=== PATIENT | male | born 1945 | race Caucasian/White ===

== ENCOUNTER 2023-10-22 18:07 | Inpatient (IN) ==
--- NOTE | 2023-10-22 18:21 | DR.SOBA ---
HPI Time Seen Time Seen by Provider: 10/22/23 18:18 Complaints Chief Complaint Doctors Comments: Patient has a h/o pulmonary fibrosis,COPD and is 02 dependent on 3.5-4L 02 NC at home. Patient has an intermittent cough and was began coughinging at 11:00am at home today. His cough worsened and patient 's lips appeared to be turnimng blue so spouise called EMS. EMS palced patient on a NRB mask because he had an 02 sat of 60-70's at home. They gave him a duoneb and a solumedrol dose 125mg iv. states that 10/19/2023 patient went to pcp's office. he was given a rocephin shot,steroid shot ,and was sent home on cefdinir. Patient denies:fever, chest pain, productive cough, headache,nausea,vomiting,abdl pain,extremity pain. COVID-19 Coronavirus risk:travel/contact w/high risk person: No Has patient experienced Coronavirus symptoms: No PMH Travel Risk Coronavirus risk:travel/contact w/high risk person: No Has patient experienced Coronavirus symptoms: No ROS Review of Systems Constitutional: Diaphoresis Eyes: No Symptoms Reported ENTM: No Symptoms Reported Respiratoy: Short of Breath and Other (Rhonchi diffusely) Cardiovascular: Palpitations Gastrointestinal/Abdominal: No Symptoms Reported Genitourinary: No Symptoms Reported Neurological: No Symptoms Reported Musculoskeletal: No Symptoms Reported Integumentary: No Symptoms Reported Hematologic/Lymphatic: No Symptoms Reported Endocrine: No Symptoms Reported Psychiatric: No Symptoms Reported All Other Systems: Reviewed and Negative PE Vital Signs Vitals: Vital Signs Temperature 98.5 F Pulse Rate 91 Pulse Rate 91 Pulse Rate 93 Pulse Rate 96 Pulse Rate 92 Pulse Rate 94 Pulse Rate 95 Pulse Rate 87 Pulse Rate 85 Pulse Rate 90 Pulse Rate 84 Pulse Rate 88 Pulse Rate 85 Pulse Rate 88 Pulse Rate 92 Pulse Rate 91 Pulse Rate 91 Pulse Rate 106 Pulse Rate 95 Pulse Rate 98 Pulse Rate 102 Pulse Rate 118 Pulse Rate 122 Pulse Rate 121 Pulse Rate 123 Respiratory Rate 33 Respiratory Rate 35 Respiratory Rate 38 Respiratory Rate 31 Respiratory Rate 35 Respiratory Rate 38 Respiratory Rate 46 Respiratory Rate 48 Respiratory Rate 40 Respiratory Rate 48 Blood Pressure 139/83 Blood Pressure 138/93 Blood Pressure 145/107 Blood Pressure 145/88 Blood Pressure 135/81 Blood Pressure 135/81 Blood Pressure 131/83 Blood Pressure 135/82 Blood Pressure 130/86 Blood Pressure 128/88 Blood Pressure 202/107 Blood Pressure 202/107 O2 Sat by Pulse Oximetry 82 O2 Sat by Pulse Oximetry 86 O2 Sat by Pulse Oximetry 85 O2 Sat by Pulse Oximetry 87 O2 Sat by Pulse Oximetry 91 O2 Sat by Pulse Oximetry 94 O2 Sat by Pulse Oximetry 95 O2 Sat by Pulse Oximetry 97 O2 Sat by Pulse Oximetry 95 O2 Sat by Pulse Oximetry 97 O2 Sat by Pulse Oximetry 96 O2 Sat by Pulse Oximetry 98 O2 Sat by Pulse Oximetry 95 O2 Sat by Pulse Oximetry 97 O2 Sat by Pulse Oximetry 97 O2 Sat by Pulse Oximetry 98 O2 Sat by Pulse Oximetry 98 O2 Sat by Pulse Oximetry 100 O2 Sat by Pulse Oximetry 98 O2 Sat by Pulse Oximetry 98 O2 Sat by Pulse Oximetry 93 O2 Sat by Pulse Oximetry 77 General Limitations: No Limitations General Appearance: Alert and In Distress Head Head Exam: Normal Inspection Eyes Eye exam: Normal Appearance ENT ENT Exam: Normal Exam Neck Neck Exam: Normal Inspection Chest Chest Inspection: Normal Inspection Respiratory Respiratory Exam: Normal Lung Sounds Bilat Respiratory Exam: Bilateral: Clear to Auscultation Cardiovascular Cardiovascular Exam: Regular Rate and Normal Rhythm Abdominal Exam Abdominal Exam: Normal Inspection, Normal Bowel Sounds and Soft Extremities Extremities Exam: Normal Inspection Back Back Exam: Normal Inspection Neurologic Neurological Exam: Alert and Oriented X3 Psychiatric Psychiatric Exam: Normal Affect and Normal Mood Skin Skin Exam: Warm, Dry, Intact and Normal Color MDM Differential Diagnosis Differential Diagnosis: CHF, COPD, Mycardial Infarction and Pneumonia Differential Diagnosis Comment:: Electrolyte disorder COURSE Treatment Treatment: Patient was brought to a monitored room in the ER by the chief revenue officer. IV access was established and an ABG was done. pH is 7.3, pO2 is 38, O2 sat is 71, FiO2 is 100% patient was placed on BiPAP after the ABG was done. Patient was given magnesium 1 g IV push in the ED when his pressure was 202/107, and his heart rate was 121, and he was using accessory abdl muslces.He subsequently had improvement in his breathing on the bipap. Discussed case with Dr Hinkle.He states that he would like to admit him to [facility]. 22:00 Patient expressed wish to treat arrhythmias with meds/use bipap as needed. Patient does not want intubation.Patient requested to be taken off Bipap in the ED and was placed on a venturi mask.Dr Hinkle was notified by the Nursing Staff. He would like an ABG in the am.Patient's CXR did not reveal an acute process.Mariaelena has a pos covid-19 test, wbc 16.7,Troponin 609.4/EKG with twvae inversions in lead III. ROR Labs Reviewed Laboratory Results Reviewed?: Yes 10/22/23 18:30 10/22/23 18:50 Laboratory: WBC 16.7 X10^3/uL (3.6-10.0) H 10/22/23 18:30 RBC 6.60 X10^6/uL (4.7-6.0) H 10/22/23 18:30 Hgb 20.5 g/dL (13.5-18.0) H* 10/22/23 18:30 Hct 64.0 % (42.0-54.0) H* 10/22/23 18:30 MCV 97.0 fL (80.0-100.0) 10/22/23 18:30 MCH 31.1 pg (27.0-34.0) 10/22/23 18:30 MCHC 32.0 g/dL (33.0-35.0) L 10/22/23 18:30 RDW 16.6 % (11.6-16.5) H 10/22/23 18:30 Plt Count 137 X10^3/uL (150.0-450.0) L 10/22/23 18:30 Plt Count Comment Decreased (ADEQUATE) 10/22/23 18:30 MPV 8.9 fL (7.4-11.0) 10/22/23 18:30 Neut % (Auto) 78.6 % (42.0-75.0) H 10/22/23 18:30 Lymph % (Auto) 9.0 % (21.0-51.0) L 10/22/23 18:30 Metcalfe % (Auto) 12.1 % (0.0-13.0) 10/22/23 18:30 Eos % (Auto) 0.1 % (0.9-2.9) L 10/22/23 18:30 Baso % (Auto) 0.2 % (0.2-1.0) 10/22/23 18:30 Neut # (Auto) 13.1 x10^3/uL (2.2-4.8) H 10/22/23 18:30 Lymph # (Auto) 1.5 X10^3/uL (1.3-2.9) 10/22/23 18:30 Metcalfe # (Auto) 2.0 x10^3/uL (0.3-0.8) H 10/22/23 18:30 Eos # (Auto) 0.0 x10^3/uL (0.0-0.2) 10/22/23 18:30 Baso # (Auto) 0.0 X10^3/uL (0.0-0.1) 10/22/23 18:30 Absolute Nucleated RBC 1.4 /100WBC 10/22/23 18:30 Total Counted 100 10/22/23 18:30 Neutrophils % (Manual) 80 % (39-76) H 10/22/23 18:30 Band Neutrophils % 1 % (0-10) 10/22/23 18:30 Lymphocytes % (Manual) 8 % (13-43) L 10/22/23 18:30 Monocytes % (Manual) 11 % (4-9) H 10/22/23 18:30 Giant Platelets Few 10/22/23 18:30 Plt Morphology Comment Abnormal (NORMAL) 10/22/23 18:30 RBC Morphology Abnormal (NORMAL) 10/22/23 18:30 Anisocytosis Slight A 10/22/23 18:30 PT 16.4 SECONDS (11.8-14.3) 10/22/23 18:50 INR Target Range - 10/22/23 18:50 INR 1.35 (0.8-1.3) H 10/22/23 18:50 APTT 35.6 SECONDS (22.9-36.5) 10/22/23 18:50 PTT Comment - 10/22/23 18:50 Sample Site Lrad 10/22/23 18:18 ABG pH 7.390 (7.35-7.45) 10/22/23 18:18 ABG pCO2 30.0 mmHg (35.0-45.0) L 10/22/23 18:18 ABG pO2 38.0 mmHg (80.0-100.0) L* 10/22/23 18:18 ABG HCO3 18.2 mmol/L (22-26) L 10/22/23 18:18 ABG O2 Saturation 71.0 % (90-100) L* 10/22/23 18:18 ABG Base Excess -5.7 mmol/L (-2.0-2.0) L 10/22/23 18:18 Ganesh Test Pos 10/22/23 18:18 A-a Gradient 638.0 mmHg 10/22/23 18:18 FiO2 100.0 10/22/23 18:18 Blood Gas Comments Pt makeda well elj 10/22/23 18:18 Sodium 139 mmol/L (136-145) 10/22/23 18:50 Corrected Sodium 140 mmol/L (136-145) 10/22/23 18:50 Potassium 4.7 mmol/L (3.5-5.1) 10/22/23 18:50 Chloride 102 mmol/L (98-107) 10/22/23 18:50 Carbon Dioxide 26.2 mmol/L (21-32) 10/22/23 18:50 BUN 36 mg/dL (7-18) H 10/22/23 18:50 Creatinine 1.66 mg/dL (0.70-1.30) H 10/22/23 18:50 Est GFR (MDRD) Af Amer 52 (>60) L 10/22/23 18:50 Est GFR (MDRD) Non-Af 43 (>60) L 10/22/23 18:50 Glucose 124 mg/dL (65-99) H 10/22/23 18:50 Lactic Acid 3.5 mmol/L (0.4-2.0) H 10/22/23 18:50 Calcium 8.7 mg/dL (8.5-10.1) 10/22/23 18:50 Corrected Calcium 9.6 mg/dL (8.5-10.1) 10/22/23 18:50 Total Bilirubin 0.80 mg/dL (0.2-1.0) 10/22/23 18:50 AST 59 Units/L (15-37) H 10/22/23 18:50 ALT 45 Units/L (12-78) 10/22/23 18:50 Alkaline Phosphatase 108 Units/L (46-116) 10/22/23 18:50 Creatine Kinase 58 Units/L (39-308) 10/22/23 18:50 Troponin I High Sens 609.4 ng/L (4.0-60.0) H* 10/22/23 18:50 C-Reactive Protein 20.50 mg/L (0-3.0) H 10/22/23 18:50 B-Natriuretic Peptide 289 pg/mL (0-79) H 10/22/23 18:50 Total Protein 7.7 g/dL (6.4-8.2) 10/22/23 18:50 Albumin 2.9 g/dL (3.4-5.0) L 10/22/23 18:50 Globulin 4.8 g/dL (2.5-4.5) H 10/22/23 18:50 Albumin/Globulin Ratio 0.6 Ratio (1.1-2.1) L 10/22/23 18:50 SARS-CoV-2 (PCR) Positive (NEGATIVE) A 10/22/23 20:47 Influenza Type A (PCR) Negative (NEGATIVE) 10/22/23 20:47 Influenza Type B (PCR) Negative (NEGATIVE) 10/22/23 20:47 RSV (PCR) Negative (NEGATIVE) 10/22/23 20:47 EKG Compared to prior EKG Dated: 10/22/23 Rate: 115 [place]: Normal Rhythm: ST Block: [address]: Ischemia (lead III) Opioid Opioid Risk Tool Age (Kingsley box if 16-45): No History of Preadolescent Sexual Abuse: No Total: 0 Total Score Risk Category: Low Risk Copyright: [facility] predicting aberrant behaviors Discharge Plan Diagnosis Discharge Problem: Acute hypoxemic respiratory failure due to COVID-19, Non-ST elevation [place] (NSTEMI), DNR (do not resuscitate), PRIMO (acute kidney injury) Discharge Plan Patient Disposition: 09 ADMITTED INPATIENT Condition: Stable Prescriptions: No Action benzonatate 200 mg capsule 200 mg PO DAILY simvastatin 40 mg tablet 40 mg PO QPM pantoprazole 40 mg tablet,delayed release (DR/EC) 40 mg PO BID metoprolol tartrate 50 mg tablet 50 mg PO BID docusate sodium 100 mg capsule 100 mg PO BID budesonide 0.5 mg/2 mL suspension for nebulization 0.5 mg BID furosemide 20 mg tablet 20 mg PO BID PRN (Reason: swelling) Hematinic Plus Vit/Minerals 106 mg iron- 1 mg tablet 1 tab PO QDAY Hemocyte-Plus 106 mg iron- 1 mg capsule 1 cap PO QDAY Health Concerns: Post Hospitalization: new medications and changes needed to prevent readmission or further decline. Pt educated and given instructions on all concerns. Plan of Treatment: Continue with present treatment and follow up plan. Pt is to keep follow up appointment as instructed and take medications as ordered. Orders to Discharge Patient Discharge Orders: Transfer (Routine); Ordered 10/22/23 Ordered By: Anali Olivera Follow ups/Referrals Follow ups/Referrals: Ryland Hinkle [Primary Care Provider] - 3 days Instructions Stand Alone Forms: Post Hospital Follow Up Care
[2023-10-22 18:22] VITALS: BMI 25.6
[2023-10-22 18:23] LABS: ABG ALLEN TEST POS; ABG BASE EXCESS -5.7 mmol/L (-2.0-2.0); ABG HCO3 18.2 mmol/L (22-26)
[2023-10-22] MEDS ORDERED: MAGNESIUM SULFATE 1 GRAM/100 mL PREMIX 1 G/100 ML BAG IV SCH (18:23)
[2023-10-22] MEDS ORDERED: MAGNESIUM SULFATE 1 GRAM/100 mL PREMIX 1 G/100 ML BAG IV ONE ×3 (18:24→18:26)
[2023-10-22] MEDS: MAGNESIUM SULFATE 1 GRAM/100 mL PREMIX 1 G/100 ML BAG IV SCH ×2 (18:25→18:27)
--- NOTE | 2023-10-22 18:47 | EKG ---
Test Reason : sob Blood Pressure : */* mmHG Vent. Rate : 115 BPM Atrial Rate : 115 BPM P-R Int : 226 ms QRS Dur : 78 ms QT Int : 288 ms P-R-T Axes : -2 115 2 degrees QTc Int : 398 ms Sinus tachycardia with 1st degree AV block with premature supraventricular complexes Right axis deviation T wave abnormality, consider inferior ischemia Abnormal ECG No previous ECGs available Confirmed by Jonel Blanca MD ([id number]) on 10/23/2023 7:35:01 AM Referred By: Confirmed By: Jonel Blanca MD
[2023-10-22 19:08] LABS: MEAN PLATELET VOLUME 8.9 fL (7.4-11.0)
[2023-10-22 19:13] LABS: BASOPHILS % (AUTO) 0.2 % (0.2-1.0); EOSINOPHILS % (AUTO) 0.1 % (0.9-2.9); LYMPHOCYTES # (AUTO) 1.5 X10^3/uL (1.3-2.9); MEAN CORPUSCULAR HEMOGLOBIN 31.1 pg (27.0-34.0); MONOCYTES % (AUTO) 12.1 % (0.0-13.0); NEUTROPHILS # (AUTO) 13.1 x10^3/uL (2.2-4.8); NEUTROPHILS % (AUTO) 78.6 % (42.0-75.0); PLATELET COUNT 137 X10^3/uL (150.0-450.0); RED CELL DISTRIBUTION WIDTH 16.6 % (11.6-16.5); WHITE BLOOD COUNT 16.7 X10^3/uL (3.6-10.0)
[2023-10-22 19:14] LABS: INR 1.35 (0.8-1.3)
--- NOTE | 2023-10-22 19:20 | RAD ---
EXAM:CHEST, 1 VIEWHISTORY:SOB, COPD;COMPARISON:CT chest from February 01, 2023TECHNIQUE:Chest radiographic imaging, AP portable projection, 1 imageFINDINGS:Mild cardiomegaly.Status post median sternotomy/CABG.No focal airspace disease.No pleural effusion.No pneumothorax.No acute osseous abnormality.IMPRESSION:No imaging findings of acute cardiopulmonary disease.THIS IS AN ELECTRONICALLY VERIFIED FINAL REPORT10/22/2023 7:16 PM - Electronically signed by Alexandre Langley MD
[2023-10-22 19:35] LABS: HEMOGLOBIN 20.5 g/dL (13.5-18.0)
[2023-10-22 19:36] LABS: BAND NEUTROPHILS % 1 % (0-10)
[2023-10-22 19:37] LABS: ANISOCYTOSIS SLIGHT; GIANT PLATELET FEW; PLATELET MORPHOLOGY COMMENT ABNORMAL (NORMAL)
[2023-10-22 19:39] LABS: ALBUMIN 2.9 g/dL (3.4-5.0); CALCIUM 8.7 mg/dL (8.5-10.1); CARBON DIOXIDE 26.2 mmol/L (21-32); COR CA(FOR HYPOALB) 9.6 mg/dL (8.5-10.1); CREATININE 1.66 mg/dL (0.70-1.30); POTASSIUM 4.7 mmol/L (3.5-5.1); TOTAL PROTEIN 7.7 g/dL (6.4-8.2)
--- NOTE | 2023-10-23 04:56 | EKG ---
Test Reason : CP Blood Pressure : */* mmHG Vent. Rate : 76 BPM Atrial Rate : 76 BPM P-R Int : 248 ms QRS Dur : 92 ms QT Int : 398 ms P-R-T Axes : 49 77 110 degrees QTc Int : 447 ms Sinus rhythm with 1st degree AV block Otherwise normal ECG When compared with ECG of 22-OCT-2023 18:34, (Unconfirmed) premature supraventricular complexes are no longer present Vent. rate has decreased BY 39 BPM QRS axis shifted left T wave inversion no longer evident in Inferior leads T wave inversion now evident in Anterolateral leads Confirmed by Jonel Blanca MD ([id number]) on 10/23/2023 7:34:16 AM Referred By: Confirmed By: Jonel Blanca MD
[2023-10-23 05:09] LABS: ABG BASE EXCESS 0.3 mmol/L (-2.0-2.0); ABG HCO3 22.9 mmol/L (22-26)
[2023-10-23 05:10] LABS: ABG ALLEN TEST POS
[2023-10-23 05:35] LABS: BASOPHILS % (AUTO) 0.2 % (0.2-1.0); LYMPHOCYTES # (AUTO) 0.7 X10^3/uL (1.3-2.9); LYMPHOCYTES % (AUTO) 7.7 % (21.0-51.0); MEAN CORPUSCULAR HEMOGLOBIN 31.2 pg (27.0-34.0); MEAN CORPUSCULAR HGB CONC 32.6 g/dL (33.0-35.0); MEAN CORPUSCULAR VOLUME 95.6 fL (80.0-100.0); MEAN PLATELET VOLUME 8.7 fL (7.4-11.0); MONOCYTES # (AUTO) 0.6 x10^3/uL (0.3-0.8); MONOCYTES % (AUTO) 6.2 % (0.0-13.0); NEUTROPHILS # (AUTO) 7.9 x10^3/uL (2.2-4.8); NEUTROPHILS % (AUTO) 85.9 % (42.0-75.0); PLATELET COUNT 99 X10^3/uL (150.0-450.0); RED BLOOD COUNT 6.57 X10^6/uL (4.7-6.0); RED CELL DISTRIBUTION WIDTH 16.3 % (11.6-16.5); WHITE BLOOD COUNT 9.2 X10^3/uL (3.6-10.0)
[2023-10-23 05:47] LABS: ALBUMIN 2.6 g/dL (3.4-5.0); CALCIUM 8.7 mg/dL (8.5-10.1); CARBON DIOXIDE 27.4 mmol/L (21-32); COR CA(FOR HYPOALB) 9.8 mg/dL (8.5-10.1); CREATININE 1.49 mg/dL (0.70-1.30)
[2023-10-23 05:50] LABS: HEMATOCRIT 62.8 % (42.0-54.0); HEMOGLOBIN 20.5 g/dL (13.5-18.0)
[2023-10-23] MEDS: LOPRESSOR TAB 50 MG PO SCH ×2 (08:44→20:10)
[2023-10-23] MEDS: COLACE CAP 100 MG PO SCH ×2 (08:44→20:09)
[2023-10-23] MEDS: PROTONIX TAB 40 MG PO SCH ×2 (08:45→20:10)
[2023-10-23] MEDS ORDERED: PATIENT'S HOME MEDICATION (Mv-Mins No.73-Iron Fum-Folic [Hemocyte-Plus] 106 mg iron- 1 mg PO SCH (09:00)
[2023-10-23] MEDS ORDERED: HEMOCYTE-PLUS PO SCH (09:00)
[2023-10-23] MEDS: TESSALON PERLES PO SCH (09:03)
[2023-10-23] MEDS: PULMICORT NEB TX 0.5 MG NEB SCH ×2 (09:12→20:26)
--- NOTE | 2023-10-23 11:29 | DR.CONSULT ---
CONSULT Consultation for Day of: Date: 10/23/23 Chief Complaint Chief Complaint: sob Allergies Allergies Allergy/AdvReac Type Severity Reaction Status Date / Time No Known Drug Allergies Allergy Unknown Verified 02/11/21 09:36 History of Present Illness History of Present Illness: 78 yo male-pt of [facility]- Cabg 2003- last stress 10/30: no ischemia ef 56%- last echo 10/31 50%- also has AAA s/p stents/copd/pulm fibrosis/stroke- was doing ok except last week - got sob/covid running in family- got bad yesterday with initial abg had o2 30- ekg did not have acute st changes-denied cp- feeling better now but still sob- no evolutionary changes on ekg but trops [id number] Past Medical History Past Medical History: COPD, Coronary Artery Disease and Hypertension Past Surgical History Surgical History: Angioplasty/Stents Family History Family Medical History: Coronary Artery Disease, Heart Failure and Hypertension Social History Type of Tobacco Use: None Does any household member use tobacco: No Alcohol Use: None Drug Use: None Medications Home Medications: No Known Drug Allergies Allergy (Unknown, Verified 02/11/21 09:36) CONTINUE taking the following medications B bsmfyat-B-laj-Fe-FA 106 mg iron-1 mg tablet (Hematinic Plus Vit/Minerals) 1 tab PO QDAY 10/22/23 [History] benzonatate 200 mg capsule 200 mg PO DAILY 10/22/23 [History] budesonide 0.5 mg/2 mL suspension for nebulization 0.5 mg BID 10/22/23 [History] docusate sodium 100 mg capsule 100 mg PO BID 10/22/23 [History] furosemide 20 mg tablet 20 mg PO BID PRN swelling 10/22/23 [History] metoprolol tartrate 50 mg tablet 50 mg PO BID 10/22/23 [History] multivit-minerals no.73-iron fumarate 106 mg-folic acid 1 mg capsule (Hemocyte- Plus) 1 cap PO QDAY 10/22/23 [History] pantoprazole 40 mg tablet,delayed release 40 mg PO BID 10/22/23 [History] simvastatin 40 mg tablet 40 mg PO QPM 10/22/23 [History] Physical Exam Vital Signs: Vital Signs Temperature 97.8 F Temperature 97.4 F Pulse Rate 58 Pulse Rate 57 Pulse Rate 56 Pulse Rate 53 Pulse Rate 67 Pulse Rate 71 Pulse Rate 69 Pulse Rate 71 Pulse Rate 63 Pulse Rate 68 Pulse Rate 67 Pulse Rate 67 Pulse Rate 70 Pulse Rate 68 Pulse Rate 77 Respiratory Rate 16 Respiratory Rate 25 Respiratory Rate 22 Respiratory Rate 21 Respiratory Rate 21 Respiratory Rate 24 Respiratory Rate 20 Respiratory Rate 17 Respiratory Rate 17 Respiratory Rate 17 Respiratory Rate 17 Respiratory Rate 22 Respiratory Rate 19 Respiratory Rate 24 Blood Pressure 126/78 Blood Pressure 135/87 Blood Pressure 132/73 Blood Pressure 159/94 Blood Pressure 167/88 Blood Pressure 147/85 Blood Pressure 129/80 Blood Pressure 153/77 Blood Pressure 144/93 Blood Pressure 164/90 Blood Pressure 125/83 Blood Pressure 124/76 O2 Sat by Pulse Oximetry 87 O2 Sat by Pulse Oximetry 91 O2 Sat by Pulse Oximetry 92 O2 Sat by Pulse Oximetry 91 O2 Sat by Pulse Oximetry 92 O2 Sat by Pulse Oximetry 88 O2 Sat by Pulse Oximetry 90 O2 Sat by Pulse Oximetry 89 O2 Sat by Pulse Oximetry 91 O2 Sat by Pulse Oximetry 91 O2 Sat by Pulse Oximetry 91 O2 Sat by Pulse Oximetry 90 O2 Sat by Pulse Oximetry 88 O2 Sat by Pulse Oximetry 89 O2 Sat by Pulse Oximetry 88 sob , wearing multiple masks no jvd, lungs : some rhonchi/dry crackles cor rrr afua ext; minimal edema labs: hct 64 cxr: no PNA, cr 1.49 wbc 16.7 plt 99 Plan (1) Acute hypoxemic respiratory failure due to COVID-19: Status: Acute (2) Non-ST elevation [place] (NSTEMI): Status: Acute Narrative Support Text: suspect relted to hypoxia/covid- will see if EF has changes significantly with echo- it has been almost 2 years- could consider stress when over this event (3) PRIMO (acute kidney injury): Status: Acute (4) Low platelet count: Status: Acute (5) High hematocrit: Status: Acute Narrative Support Text: ? need for giving blood to drop hct< 55 (6) COPD (chronic obstructive pulmonary disease): Status: Acute (7) Pulmonary fibrosis: Status: Acute
--- NOTE | 2023-10-23 16:32 | DR.H&P ---
H&P - History & Physical for Day of: H&P Date: 10/22/23 - Chief Complaint Chief Complaint: COUGH, SHORTNESS OF BREATH, DECREASED OXYGEN SATURATIONS - History of Present Illness History of Present Illness: IS A 78 YEAR OLD PATIENT OF OURS. HE HAS A HISTORY OF PULMONARY FIBROSIS, COPD, HYPERLIPIDEMIA, GERD. HE PRESENTED TO THE HOSPITAL WITH COMPLAINTS OF COUGH, SHORTNESS OF BREATH, AND DECREASED OXYGEN SATURATIONS. HE IS OXYGEN DEPENDENT ON 3.5-4 LPM. PATIENTS SPOUSE REPORTS THAT HE BECAME CYANOTIC, SO SHE CALLED EMS. EMS REPORTS THAT HIS OXYGEN SATURATIONS WERE 60-70% WHEN THEY ARRIVED. THEY PLACED HIM ON A NON-REBREATHER AND GAVE HIM A DUONEB TX AND SOLU-MEDROL 125MG. SPOUSE REPORTS THAT PATIENT WAS GIVEN A ROCEPHIN INJECTION, STEROID INJECTION, AND AN RX FOR CEFDINIR ON 10/19/23. PATIENT DENIES FEVER, CHEST PAIN, PRODUCTIVE COUGH, HEADACHE, NAUSEA, VOMITING, ABDOMINAL PAIN, OR EXTREMITY PAIN. ON ARRIVAL TO THE ER, HIS VITALS WERE: 98.5-122-48-77%-202/107. LABS WERE OBTAINED. WBC 16.7, RBC 6.60, HGB 20.5, HCT 64.0, PLT COUNT 137, INR 1.35, D-DIMER 10.74, SODIUM 139, POTASSIUM 4.7, CHLORIDE 102, BUN 36, CREATININE 1.66, GLUCOSE 124, CALCIUM 8.7, LACTIC ACID 3.5, TOTAL BILI 0.80, AST 59, ALT 45, ALK PHOS 108, CREATINE KINASE 58, TROPONIN 609.4, CRP 20.50, BNP 289, TOTAL PROTEIN 7.7, ALBUMIN 2.9. ABG WAS OBTAINED AND REVEALED: PH 7.390, PC02 30, P02 38, HC03 18.2, HC03 18.2, 02 SAT 71, BASE EXCESS 5.7, A-A GRADIENT 638, FI02 100. COVID-19 POSITIVE. INFLUENZA AND RSV NEGATIVE. BLOOD CULTURES WERE SET UP. CHEST XRAY WAS OBTAINED AND REVEALED: No imaging findings of acute cardiopulmonary disease. EKG REVEALED SINUS TACHYCARDIA WITH 1ST DEGREE AV BLOCK WITH PREMATURE SUPRAVENTRICULAR COMPLEXES. IN THE ER, HE WAS GIVEN MAGNESIUM 1G IV X 1. HE WAS ADMITTED TO THE HOSPITAL FOR FURTHER EVALUATION AND TREATMENT OF COVID-19, BRONCHOPNEUMONIA, ACUTE HYPOXEMIC RESPIRATORY FAILURE, NON-ST ELEVATION [place], ACUTE KIDNEY INJURY. HE WAS STARTED ON PAXLOVID, SOLU-MEDROL 80MG IV Q8H, PULMICORT NEBS BID, ROBITUSSIN DM 10 ML QID, TUSSIONEX 5ML Q12H PRN, LEVAQUIN 500MG IV DAILY, TESSALON PERLES 200MG DAILY. HIS HOME MEDS OF COLACE, LASIX, METOPROLOL, PROTONIX WERE RESUMED. OTHERWISE, WE PLAN TO FOLLOW UP WITH AM LABS AND CHEST XRAY AND CONTINUE TO MONITOR. TIME SPENT ON CLINICAL ASSESSMENT, REVIEWING LABS AND IMAGING, DECISION MAKING, AND DOCUMENTATION GREATER THAN 75 MINUTES. - Past Medical History Past Medical History: COPD, Coronary Artery Disease, Dyslipidemia, GERD, Hypertension Additional Medical History: PULMONARY FIBROSIS - Past Surgical History Surgical History: Angioplasty/Stents - Family History Family Medical History: Coronary Artery Disease, Heart Failure, Hypertension - Social History Type of Tobacco Use: None Does any household member use tobacco: No Alcohol Use: None Drug Use: None - Review of Systems Constitutional: Weakness Eyes: No Symptoms Reported ENT: No Symptoms Reported Respiratory: Cough, Shortness of Breath, SOB with Excertion Cardiovascular: No Symptoms Reported Gastrointestinal: No Symptoms Reported Genitourinary: No Symptoms Reported Musculoskeletal: No Symptoms Reported Skin: No Symptoms Reported Neurological: Weakness - Physical Exam Vital Signs: Vital Signs Temperature 97.8 F Temperature 97.4 F Pulse Rate 55 Pulse Rate 53 Pulse Rate 56 Pulse Rate 58 Pulse Rate 58 Pulse Rate 60 Pulse Rate 60 Pulse Rate 55 Pulse Rate 58 Pulse Rate 55 Pulse Rate 55 Pulse Rate 58 Pulse Rate 57 Pulse Rate 56 Pulse Rate 53 Pulse Rate 67 Pulse Rate 71 Pulse Rate 69 Pulse Rate 71 Respiratory Rate 16 Respiratory Rate 18 Respiratory Rate 17 Respiratory Rate 16 Respiratory Rate 22 Respiratory Rate 26 Respiratory Rate 24 Respiratory Rate 22 Respiratory Rate 17 Respiratory Rate 17 Respiratory Rate 17 Respiratory Rate 16 Respiratory Rate 25 Respiratory Rate 22 Respiratory Rate 21 Respiratory Rate 21 Respiratory Rate 24 Respiratory Rate 20 Blood Pressure 152/74 Blood Pressure 137/72 Blood Pressure 136/77 Blood Pressure 143/80 Blood Pressure 122/75 Blood Pressure 153/84 Blood Pressure 140/83 Blood Pressure 138/78 Blood Pressure 155/76 Blood Pressure 131/77 Blood Pressure 126/78 Blood Pressure 135/87 Blood Pressure 132/73 Blood Pressure 159/94 Blood Pressure 167/88 Blood Pressure 147/85 O2 Sat by Pulse Oximetry 88 O2 Sat by Pulse Oximetry 86 O2 Sat by Pulse Oximetry 86 O2 Sat by Pulse Oximetry 86 O2 Sat by Pulse Oximetry 86 O2 Sat by Pulse Oximetry 89 O2 Sat by Pulse Oximetry 87 O2 Sat by Pulse Oximetry 87 O2 Sat by Pulse Oximetry 87 O2 Sat by Pulse Oximetry 86 O2 Sat by Pulse Oximetry 85 O2 Sat by Pulse Oximetry 87 O2 Sat by Pulse Oximetry 91 O2 Sat by Pulse Oximetry 92 O2 Sat by Pulse Oximetry 91 O2 Sat by Pulse Oximetry 92 O2 Sat by Pulse Oximetry 88 O2 Sat by Pulse Oximetry 90 O2 Sat by Pulse Oximetry 89 Oriented: Normal Eyes: Normal Ear: Normal Nose: Normal Throat: Normal Respiratory: Rhonchi Throughout Cardiovascular: Tachycardia : Normal Auscultation: Bowel Sounds: Normal Palpation: Normal Tenderness: Normal Skin: Normal Musculoskeletal: Normal Psychiatric: Normal Mood Description: Calm Affect: Normal Speech Pattern: Clear - Assessment/Plan (1) Acute hypoxemic respiratory failure due to COVID-19 Status: Acute Plan: ADMIT, SUPPLEMENTAL OXYGEN, PAXLOVID, SOLU-MEDROL 80MG IV Q8H, PULMICORT NEBS BID, ROBITUSSIN DM 10 ML QID, TUSSIONEX 5ML Q12H PRN, LEVAQUIN 500MG IV DAILY, TESSALON PERLES 200MG DAILY. HIS HOME MEDS OF COLACE, LASIX, METOPROLOL, PROTONIX WERE RESUMED. (2) Bronchopneumonia Status: Acute (3) PRIMO (acute kidney injury) Status: Acute (4) Non-ST elevation [place] (NSTEMI) Status: Acute Plan: CARDIOLOGY CONSULT (5) COPD (chronic obstructive pulmonary disease) Qualifiers: COPD type: unspecified COPD Qualified Code(s): J44.9 - Chronic obstructive pulmonary disease, unspecified Status: Chronic (6) Hyperlipidemia Qualifiers: Hyperlipidemia type: mixed hyperlipidemia Qualified Code(s): E78.2 - Mixed hyperlipidemia Status: Chronic (7) Pulmonary fibrosis Status: Chronic - Allergies Allergies/Adverse Reactions: Allergies Allergy/AdvReac Type Severity Reaction Status Date / Time No Known Drug Allergies Allergy Unknown Verified 02/11/21 09:36 - Medications Home Medications: Home Medications Medication Instructions Recorded Confirmed B ezoyrwr-N-dfl-Fe-FA 106 mg 1 tab PO QDAY 10/22/23 10/22/23 iron-1 mg tablet (Hematinic Plus Vit/Minerals) benzonatate 200 mg capsule 200 mg PO DAILY 10/22/23 10/22/23 budesonide 0.5 mg/2 mL suspension 0.5 mg BID 10/22/23 10/22/23 for nebulization docusate sodium 100 mg capsule 100 mg PO BID 10/22/23 10/22/23 furosemide 20 mg tablet 20 mg PO BID PRN swelling 10/22/23 10/22/23 metoprolol tartrate 50 mg tablet 50 mg PO BID 10/22/23 10/22/23 multivit-minerals no.73-iron 1 cap PO QDAY 10/22/23 10/22/23 fumarate 106 mg-folic acid 1 mg capsule (Hemocyte-Plus) pantoprazole 40 mg tablet,delayed 40 mg PO BID 10/22/23 10/22/23 release simvastatin 40 mg tablet 40 mg PO QPM 10/22/23 10/22/23
[2023-10-23] MEDS: SOLU-Medrol 40 MG VIAL IVP SCH ×2 (18:00→21:19)
[2023-10-23] MEDS ORDERED: ZOCOR TAB 40 MG PO SCH (21:00)
[2023-10-24] MEDS: SOLU-Medrol 40 MG VIAL IVP SCH ×3 (05:20→21:27)
[2023-10-24 05:27] LABS: BASOPHILS % (AUTO) 0.4 % (0.2-1.0); LYMPHOCYTES # (AUTO) 0.5 X10^3/uL (1.3-2.9); MONOCYTES % (AUTO) 5.1 % (0.0-13.0); NEUTROPHILS % (AUTO) 88.5 % (42.0-75.0)
[2023-10-24 05:32] LABS: ALANINE AMINOTRANSFERASE 35 Units/L (12-78); ALBUMIN 2.5 g/dL (3.4-5.0); ALKALINE PHOSPHATASE 83 Units/L (46-116); ASPARTATE AMINO TRANSFERASE 42 Units/L (15-37); BLOOD UREA NITROGEN 40 mg/dL (7-18); CALCIUM 8.9 mg/dL (8.5-10.1); CARBON DIOXIDE 24.4 mmol/L (21-32); CHLORIDE 104 mmol/L (98-107); COR CA(FOR HYPOALB) 10.1 mg/dL (8.5-10.1); COR NA(FOR HYPERGLY) 138 mmol/L (136-145); CREATININE 1.27 mg/dL (0.70-1.30); GLUCOSE 143 mg/dL (65-99); POTASSIUM 4.6 mmol/L (3.5-5.1); SODIUM 137 mmol/L (136-145); TOTAL PROTEIN 6.8 g/dL (6.4-8.2); eGFR NON BLACK RACES 58 (>60)
[2023-10-24 05:35] LABS: MEAN CORPUSCULAR HEMOGLOBIN 30.7 pg (27.0-34.0); MEAN CORPUSCULAR VOLUME 96.1 fL (80.0-100.0); MEAN PLATELET VOLUME 8.9 fL (7.4-11.0); MONOCYTES # (AUTO) 0.4 x10^3/uL (0.3-0.8); NEUTROPHILS # (AUTO) 7.6 x10^3/uL (2.2-4.8); PLATELET COUNT 102 X10^3/uL (150.0-450.0); RED BLOOD COUNT 6.54 X10^6/uL (4.7-6.0); RED CELL DISTRIBUTION WIDTH 16.2 % (11.6-16.5); WHITE BLOOD COUNT 8.5 X10^3/uL (3.6-10.0)
--- NOTE | 2023-10-24 05:57 | RAD ---
EXAM:CHEST, 1 VIEWHISTORY:SOB;COMPARISON:10/22/2023 r.br.br.br mildly enlarged. Changes of prior CABG surgery.. The lungs are clear without focal infiltrate or effusion. The bony thorax is unremarkable.IMPRESSION:Mild cardiomegalyNo active cardiopulmonary diseaseTHIS IS AN ELECTRONICALLY VERIFIED FINAL REPORT10/24/2023 5:46 AM - Electronically signed by Dylon Tubbs MD
[2023-10-24 06:21] LABS: HEMATOCRIT 62.9 % (42.0-54.0); HEMOGLOBIN 20.1 g/dL (13.5-18.0)
[2023-10-24] MEDS: PROTONIX TAB 40 MG PO SCH ×2 (08:14→21:26)
[2023-10-24] MEDS: LOPRESSOR TAB 50 MG PO SCH ×2 (08:14→21:26)
[2023-10-24] MEDS: COLACE CAP 100 MG PO SCH ×2 (08:14→21:26)
[2023-10-24] MEDS: TESSALON PERLES PO SCH (08:16)
--- NOTE | 2023-10-24 08:52 | NOTE.SOAP ---
Soap Note Note for Day of Date of Exam: 10/24/23 Subjective Data Subjective Data: sob improving, no cp Objective Data Objective Data: bp 170s-140s p 55 alert lungs mild rhochi sumi afua minimal edema last stress 10/30 ( 2 years ago) echo: ef 55% ( same as last year but pa pressures > 55 from last year) labs: hct 63 Assessment Assessment: nstemi/covid/copd/pulm fibrosis/pulm hypertension/erythrocytosis Plan Plan: add ccb to lower bp/pa/protect heart- consider phlebotomy- stress as its been 2 years when stable/outpt unless sx progress
[2023-10-24] MEDS: PULMICORT NEB TX 0.5 MG NEB SCH ×2 (09:10→20:21)
[2023-10-24] MEDS: PAXLOVID CO-PACK (EUA) PO SCH ×2 (09:30→21:26)
[2023-10-24] MEDS: NORVASC TAB 5 MG PO SCH (09:30)
--- NOTE | 2023-10-24 12:23 | PCM.PROG ---
Progress Note - Progress Note for Day of Date of Exam: 10/24/23 - Subjective Subjective: IS CURRENTLY INPATIENT STATUS FOR TRETAMENT OF ACUTE HYPOXEMIC RESPIRATORY FAILURE DUE TO COVID-19, BRONCHOPNEUMONIA, ACUTE KIDNEY INJURY, NON-STEMI. HIS HX INCLUDES: PULMONARY FIBROSIS, COPD, HYPERLIPIDEMIA, GERD. TODAY, HE IS ALERT AND ORIENTED, SITTING UP IN BED ON MORNING ROUNDS. HE CONTINUES TO COMPLAIN OF SHORTNESS OF BREATH AND A NON-PRODUCTIVE COUGH. HE ONLY REPORTS SLIGHT IMPROVEMENT IN SYMPTOMS SINCE ADMISSION. HE IS UTILIZING OXYGEN VIA THE OXYMASK THIS MORNING AT 8 LPM. HIS OXYGEN SATURATIONS HAVE BEEN 85-92% THIS MORNING AND THROUGHOUT THE NIGHT. ON EXAMINATION, HEART IS REGULAR IN RATE AND RHYHTM. BILATERAL LUNGS ARE NOTED WITH DIMINISHED LUNG SOUNDS THROUGHOUT. ABDOMEN IS ROUND, SOFT, AND NON-TENDER WITH NORMAL BOWEL SOUNDS NOTED IN ALL QUADRANTS. GOOD RANGE OF MOTION NOTED TO UPPER AND LOWER EXTREMITIES WITH NO EDEMA NOTED. HIS VITALS THIS MORNING ARE: 97.7-70-25-86%-174/117. LABS WERE OBTAINED. WBC 8.5, RBC 6.54, HGB 20.1, HCT 62.9, PLT COUNT 102, SODIUM 137, POTASSIUM 4.6, CHLORIDE 104, BUN 40, CREATININE 1.27, CALCIUM 8.9, TOTAL BILI 0.90, AST 42, ALT 35, ALK PHOS 83, CRP 39.60, BNP 379, TOTAL PROTEIN 6.8, ALBUMIN 2.5. BLOOD CULTURES ARE PENDING. A CHEST XRAY WAS OBTAINED AND REVEALED: Mild cardiomegaly. No active cardiopulmonary disease. HE IS CURRENTLY RECEIVING PAXLOVID, SOLU-MEDROL 80MG IV Q8H, PULMICORT NEBS BID, ROBITUSSIN DM 10 ML QID, TUSSIONEX 5ML Q12H PRN, LEVAQUIN 500MG IV DAILY, TESSALON PERLES 200MG DAILY. HIS HOME MEDS OF COLACE, LASIX, METOPROLOL, PROTONIX WERE RESUMED. 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 WE WILL ORDER FOR PATIENT TO HAVE THERAPEUTIC PHLEBOTOMY DUE TO ELEVATED HGB/HCT. OTHERWISE, WE WILL CONTINUE WITH CURRENT PLAN OF CARE TODAY. WE WILL FOLLOW-UP WITH AM LABS AND CHEST XRAY AND CONTINUE TO MONITOR. TIME SPENT ON CLINICAL ASSESSMENT, REVIEWING LABS AND IMAGING, DECISION MAKING, AND DOCUMENTATION GREATER THAN 45 MINUTES. - Past Medical Family Social History Past Med/Fam/Surg Hx: No changes since H&P Allergies: Allergies No Known Drug Allergies Allergy (Unknown, Verified 02/11/21 09:36) Onset Date: 02/11/2021 - Review of Systems ROS: No change since H&P - Vital Signs and I&O's Vital Signs: Vital Signs Temperature 97.8 F Temperature 98.0 F Temperature 97.7 F Pulse Rate 60 Pulse Rate 62 Pulse Rate 63 Pulse Rate 62 Pulse Rate 71 Pulse Rate 73 Pulse Rate 78 Pulse Rate 88 Pulse Rate 80 Pulse Rate 78 Pulse Rate 74 Pulse Rate 70 Pulse Rate 55 Pulse Rate 62 Pulse Rate 54 Pulse Rate 52 Pulse Rate 56 Pulse Rate 60 Respiratory Rate 23 Respiratory Rate 28 Respiratory Rate 30 Respiratory Rate 23 Respiratory Rate 29 Respiratory Rate 31 Respiratory Rate 35 Respiratory Rate 27 Respiratory Rate 25 Respiratory Rate 24 Respiratory Rate 25 Respiratory Rate 21 Respiratory Rate 23 Respiratory Rate 15 Respiratory Rate 14 Respiratory Rate 23 Respiratory Rate 20 Blood Pressure 127/67 Blood Pressure 129/75 Blood Pressure 129/75 Blood Pressure 147/79 Blood Pressure 147/79 Blood Pressure 135/75 Blood Pressure 148/77 Blood Pressure 171/102 Blood Pressure 179/117 Blood Pressure 174/117 Blood Pressure 177/136 Blood Pressure 172/83 Blood Pressure 137/87 Blood Pressure 137/87 Blood Pressure 167/80 O2 Sat by Pulse Oximetry 86 O2 Sat by Pulse Oximetry 88 O2 Sat by Pulse Oximetry 87 O2 Sat by Pulse Oximetry 87 O2 Sat by Pulse Oximetry 88 O2 Sat by Pulse Oximetry 88 O2 Sat by Pulse Oximetry 88 O2 Sat by Pulse Oximetry 81 O2 Sat by Pulse Oximetry 85 O2 Sat by Pulse Oximetry 87 O2 Sat by Pulse Oximetry 86 O2 Sat by Pulse Oximetry 86 O2 Sat by Pulse Oximetry 92 O2 Sat by Pulse Oximetry 90 O2 Sat by Pulse Oximetry 91 O2 Sat by Pulse Oximetry 91 O2 Sat by Pulse Oximetry 88 O2 Sat by Pulse Oximetry 89 Intake and Output: Intake & Output 10/22/23 10/23/23 10/24/23 10/25/23 11:59 11:59 11:59 11:59 Intake Total 110 / 110 780 / 780 Output Total 1100 / 1100 Balance 110 / 110 -320 / -320 - Physical Exam Oriented: Normal Eyes: Normal Ear: Normal Nose: Normal Throat: Normal Respiratory: Generalized, Diminished Cardiovascular: Normal : Normal Auscultation: Bowel Sounds: Normal Palpation: Normal Tenderness: Normal Skin: Normal Musculoskeletal: Normal Psychiatric: Normal Mood Description: Calm Affect: Normal Speech Pattern: Clear, Appropriate - Laboratory and Diagnostics Result Diagrams: 10/24/23 05:02 10/24/23 05:02 Labs: 10/22/23 18:34 Blood Blood Culture - Preliminary 10/22/23 18:30 Blood Blood Culture - Preliminary Laboratory WBC 8.5 X10^3/uL (3.6-10.0) 10/24/23 05:02 RBC 6.54 X10^6/uL (4.7-6.0) H 10/24/23 05:02 Hgb 20.1 g/dL (13.5-18.0) H* 10/24/23 05:02 Hct 62.9 % (42.0-54.0) H* 10/24/23 05:02 MCV 96.1 fL (80.0-100.0) 10/24/23 05:02 MCH 30.7 pg (27.0-34.0) 10/24/23 05:02 MCHC 32.0 g/dL (33.0-35.0) L 10/24/23 05:02 RDW 16.2 % (11.6-16.5) 10/24/23 05:02 Plt Count 102 X10^3/uL (150.0-450.0) L 10/24/23 05:02 Plt Count Comment Decreased (ADEQUATE) 10/22/23 18:30 MPV 8.9 fL (7.4-11.0) 10/24/23 05:02 Neut % (Auto) 88.5 % (42.0-75.0) H 10/24/23 05:02 Lymph % (Auto) 6.0 % (21.0-51.0) L 10/24/23 05:02 [place] % (Auto) 5.1 % (0.0-13.0) 10/24/23 05:02 Eos % (Auto) 0.0 % (0.9-2.9) L 10/24/23 05:02 Baso % (Auto) 0.4 % (0.2-1.0) 10/24/23 05:02 Neut # (Auto) 7.6 x10^3/uL (2.2-4.8) H 10/24/23 05:02 Lymph # (Auto) 0.5 X10^3/uL (1.3-2.9) L 10/24/23 05:02 [place] # (Auto) 0.4 x10^3/uL (0.3-0.8) 10/24/23 05:02 Eos # (Auto) 0.0 x10^3/uL (0.0-0.2) 10/24/23 05:02 Baso # (Auto) 0.0 X10^3/uL (0.0-0.1) 10/24/23 05:02 Absolute Nucleated RBC 0.6 /100WBC 10/24/23 05:02 Total Counted 100 10/22/23 18:30 Neutrophils % (Manual) 80 % (39-76) H 10/22/23 18:30 Band Neutrophils % 1 % (0-10) 10/22/23 18:30 Lymphocytes % (Manual) 8 % (13-43) L 10/22/23 18:30 Monocytes % (Manual) 11 % (4-9) H 10/22/23 18:30 Giant Platelets Few 10/22/23 18:30 Plt Morphology Comment Abnormal (NORMAL) 10/22/23 18:30 RBC Morphology Abnormal (NORMAL) 10/22/23 18:30 Anisocytosis Slight A 10/22/23 18:30 PT 16.4 SECONDS (11.8-14.3) 10/22/23 18:50 INR Target Range - 10/22/23 18:50 INR 1.35 (0.8-1.3) H 10/22/23 18:50 APTT 35.6 SECONDS (22.9-36.5) 10/22/23 18:50 PTT Comment - 10/22/23 18:50 D-Dimer 10.74 ug/ml (0.0-0.57) H 10/23/23 09:03 Sample Site Lr 10/23/23 05:00 ABG pH 7.490 (7.35-7.45) H 10/23/23 05:00 ABG pCO2 30.0 mmHg (35.0-45.0) L 10/23/23 05:00 ABG pO2 54.0 mmHg (80.0-100.0) L 10/23/23 05:00 ABG HCO3 22.9 mmol/L (22-26) 10/23/23 05:00 ABG O2 Saturation 90.0 % (90-100) 10/23/23 05:00 ABG Base Excess 0.3 mmol/L (-2.0-2.0) 10/23/23 05:00 Ganesh Test Pos 10/23/23 05:00 A-a Gradient 279.0 mmHg 10/23/23 05:00 FiO2 52.0 10/23/23 05:00 Blood Gas Comments Monika well 10/23/23 05:00 Sodium 137 mmol/L (136-145) 10/24/23 05:02 Corrected Sodium 138 mmol/L (136-145) 10/24/23 05:02 Potassium 4.6 mmol/L (3.5-5.1) 10/24/23 05:02 Chloride 104 mmol/L (98-107) 10/24/23 05:02 Carbon Dioxide 24.4 mmol/L (21-32) 10/24/23 05:02 BUN 40 mg/dL (7-18) H 10/24/23 05:02 Creatinine 1.27 mg/dL (0.70-1.30) 10/24/23 05:02 Est GFR (MDRD) Af Amer > 60 (>60) 10/24/23 05:02 Est GFR (MDRD) Non-Af 58 (>60) L 10/24/23 05:02 Glucose 143 mg/dL (65-99) H 10/24/23 05:02 Lactic Acid 1.7 mmol/L (0.4-2.0) 10/23/23 08:15 Calcium 8.9 mg/dL (8.5-10.1) 10/24/23 05:02 Corrected Calcium 10.1 mg/dL (8.5-10.1) 10/24/23 05:02 Magnesium 2.3 mg/dL (2.0-2.9) 10/23/23 04:11 Total Bilirubin 0.90 mg/dL (0.2-1.0) 10/24/23 05:02 AST 42 Units/L (15-37) H 10/24/23 05:02 ALT 35 Units/L (12-78) 10/24/23 05:02 Alkaline Phosphatase 83 Units/L (46-116) 10/24/23 05:02 Creatine Kinase 55 Units/L (39-308) 10/23/23 00:20 Troponin I High Sens 834.7 ng/L (4.0-60.0) H* 10/23/23 06:50 C-Reactive Protein 39.60 mg/L (0-3.0) H 10/24/23 05:02 B-Natriuretic Peptide 379 pg/mL (0-79) H 10/24/23 05:02 Total Protein 6.8 g/dL (6.4-8.2) 10/24/23 05:02 Albumin 2.5 g/dL (3.4-5.0) L 10/24/23 05:02 Globulin 4.3 g/dL (2.5-4.5) 10/24/23 05:02 Albumin/Globulin Ratio 0.6 Ratio (1.1-2.1) L 10/24/23 05:02 SARS-CoV-2 (PCR) Positive (NEGATIVE) A 10/22/23 20:47 Influenza Type A (PCR) Negative (NEGATIVE) 10/22/23 20:47 Influenza Type B (PCR) Negative (NEGATIVE) 10/22/23 20:47 RSV (PCR) Negative (NEGATIVE) 10/22/23 20:47 - Plan (1) Acute hypoxemic respiratory failure due to COVID-19 Status: Acute Plan: ADMIT, SUPPLEMENTAL OXYGEN, PAXLOVID, SOLU-MEDROL 80MG IV Q8H, PULMICORT NEBS BID, ROBITUSSIN DM 10 ML QID, TUSSIONEX 5ML Q12H PRN, LEVAQUIN 500MG IV DAILY, TESSALON PERLES 200MG DAILY. HIS HOME MEDS OF COLACE, LASIX, METOPROLOL, PROTONIX WERE RESUMED. (2) Bronchopneumonia Status: Acute (3) PRIMO (acute kidney injury) Status: Acute (4) Non-ST elevation AL (NSTEMI) Status: Acute Plan: CARDIOLOGY CONSULT (5) HTN (hypertension) Status: Acute Qualifiers: Hypertension type: primary hypertension Qualified Code(s): I10 - Essential (primary) hypertension (6) COPD (chronic obstructive pulmonary disease) Status: Chronic Qualifiers: COPD type: unspecified COPD Qualified Code(s): J44.9 - Chronic obstructive pulmonary disease, unspecified (7) Hyperlipidemia Status: Chronic Qualifiers: Hyperlipidemia type: mixed hyperlipidemia Qualified Code(s): E78.2 - Mixed hyperlipidemia (8) Pulmonary fibrosis Status: Chronic
[2023-10-25 05:35] LABS: BASOPHILS % (AUTO) 0.2 % (0.2-1.0); HEMOGLOBIN 18.2 g/dL (13.5-18.0); MEAN CORPUSCULAR HEMOGLOBIN 30.6 pg (27.0-34.0); MONOCYTES # (AUTO) 0.6 x10^3/uL (0.3-0.8); MONOCYTES % (AUTO) 3.9 % (0.0-13.0); RED BLOOD COUNT 5.94 X10^6/uL (4.7-6.0)
[2023-10-25] MEDS: SOLU-Medrol 40 MG VIAL IVP SCH ×3 (05:40→21:53)
[2023-10-25 05:42] LABS: ALANINE AMINOTRANSFERASE 41 Units/L (12-78); ALBUMIN 2.2 g/dL (3.4-5.0); ALKALINE PHOSPHATASE 80 Units/L (46-116); ASPARTATE AMINO TRANSFERASE 39 Units/L (15-37); BLOOD UREA NITROGEN 38 mg/dL (7-18); CALCIUM 8.4 mg/dL (8.5-10.1); CARBON DIOXIDE 27.3 mmol/L (21-32); CHLORIDE 106 mmol/L (98-107); COR CA(FOR HYPOALB) 9.8 mg/dL (8.5-10.1); COR NA(FOR HYPERGLY) 138 mmol/L (136-145); CREATININE 1.11 mg/dL (0.70-1.30); GLUCOSE 122 mg/dL (65-99); LYMPHOCYTES # (AUTO) 0.5 X10^3/uL (1.3-2.9); LYMPHOCYTES % (AUTO) 3.2 % (21.0-51.0); MEAN CORPUSCULAR HGB CONC 31.8 g/dL (33.0-35.0); MEAN CORPUSCULAR VOLUME 96.2 fL (80.0-100.0); MEAN PLATELET VOLUME 8.7 fL (7.4-11.0); NEUTROPHILS # (AUTO) 13.4 x10^3/uL (2.2-4.8); NEUTROPHILS % (AUTO) 92.7 % (42.0-75.0); PLATELET COUNT 93 X10^3/uL (150.0-450.0); POTASSIUM 4.5 mmol/L (3.5-5.1); RED CELL DISTRIBUTION WIDTH 16.1 % (11.6-16.5); SODIUM 137 mmol/L (136-145); TOTAL PROTEIN 6.1 g/dL (6.4-8.2); WHITE BLOOD COUNT 14.5 X10^3/uL (3.6-10.0); eGFR NON BLACK RACES > 60 (>60)
[2023-10-25 06:08] LABS: HEMATOCRIT 57.1 % (42.0-54.0)
[2023-10-25 06:09] LABS: BAND NEUTROPHILS % 1 % (0-10); PLATELET MORPHOLOGY COMMENT NORMAL (NORMAL)
--- NOTE | 2023-10-25 06:20 | RAD ---
EXAM:CHEST, 1 VIEWHISTORY:SOB ;COMPARISON:10/24/2023FINDINGS:The trachea is midline. The cardiac silhouette is mildly enlarged. Changes of prior CABG surgery.. The lungs are clear without focal infiltrate or effusion. The bony thorax is unremarkable.IMPRESSION:Mild cardiomegalyNo active cardiopulmonary diseaseTHIS IS AN ELECTRONICALLY VERIFIED FINAL REPORT10/25/2023 6:16 AM - Electronically signed by Dylon Tubbs MD
[2023-10-25] MEDS: PAXLOVID CO-PACK (EUA) PO SCH ×2 (08:03→21:35)
[2023-10-25] MEDS: COLACE CAP 100 MG PO SCH ×2 (08:03→21:53)
[2023-10-25] MEDS: LOPRESSOR TAB 50 MG PO SCH ×2 (08:03→21:53)
[2023-10-25] MEDS: TESSALON PERLES PO SCH (08:04)
[2023-10-25] MEDS: PROTONIX TAB 40 MG PO SCH ×2 (08:04→21:53)
[2023-10-25] MEDS: NORVASC TAB 5 MG PO SCH (08:04)
[2023-10-25] MEDS: PULMICORT NEB TX 0.5 MG NEB SCH ×2 (08:52→20:50)
--- NOTE | 2023-10-25 12:19 | PCM.PROG ---
Progress Note - Progress Note for Day of Date of Exam: 10/25/23 - Subjective Subjective: IS CURRENTLY INPATIENT STATUS FOR TRETAMENT OF ACUTE HYPOXEMIC RESPIRATORY FAILURE DUE TO COVID-19, BRONCHOPNEUMONIA, ACUTE KIDNEY INJURY, NON-STEMI. HIS HX INCLUDES: PULMONARY FIBROSIS, COPD, HYPERLIPIDEMIA, GERD. TODAY, HE IS ALERT AND ORIENTED, SITTING UP IN BED ON MORNING ROUNDS. HE CONTINUES TO COMPLAIN OF SHORTNESS OF BREATH AND A NON-PRODUCTIVE COUGH. HE ONLY REPORTS SLIGHT IMPROVEMENT IN SYMPTOMS SINCE WE SAW HIM YESTERDAY. HE IS UTILIZING OXYGEN VIA THE OXYMASK THIS MORNING AT 8 LPM. HIS OXYGEN SATURATIONS HAVE BEEN 89-93% THIS MORNING AND THROUGHOUT THE NIGHT. ON EXAMINATION, HEART IS REGULAR IN RATE AND RHYHTM. BILATERAL LUNGS ARE NOTED WITH DIMINISHED LUNG SOUNDS THROUGHOUT. ABDOMEN IS ROUND, SOFT, AND NON-TENDER WITH NORMAL BOWEL SOUNDS NOTED IN ALL QUADRANTS. GOOD RANGE OF MOTION NOTED TO UPPER AND LOWER EXTREMITIES WITH NO EDEMA NOTED. HIS VITALS THIS MORNING ARE: 97.5-54-26-93%-166/86. LABS WERE OBTAINED. WBC 14.5, RBC 5.94, HGB 18.2, HCT 57.1, PLT COUNT 93, SODIUM 137, POTASSIUM 4.5, CHLORIDE 106, BUN 38, CREATININE 1.11, GLUCOSE 122, CALCIUM 8.4, TOTAL BILI 0.80, AST 39, ALT 41, ALK PHOS 80, CRP 17.30, TOTAL PROTEIN 6.1, ALBUMIN 2.2. BLOOD CULTURES ARE PENDING. A CHEST XRAY WAS OBTAINED AND REVEALED: Mild cardiomegaly. No active cardiopulmonary disease. HE IS CURRENTLY RECEIVING PAXLOVID, SOLU-MEDROL 80MG IV Q8H, PULMICORT NEBS BID, ROBITUSSIN DM 10 ML QID, TUSSIONEX 5ML Q12H PRN, LEVAQUIN 500MG IV DAILY, TESSALON PERLES 200MG DAILY, NORVASC 56MG DAILY. HIS HOME MEDS OF COLACE, LASIX, METOPROLOL, PROTONIX WERE RESUMED. OTHERWISE, WE WILL CONTINUE WITH CURRENT PLAN OF CARE TODAY. WE WILL FOLLOW-UP WITH AM LABS AND CHEST XRAY AND CONTINUE TO MONITOR. TIME SPENT ON CLINICAL ASSESSMENT, REVIEWING LABS AND IMAGING, DECISION MAKING, AND DOCUMENTATION GREATER THAN 45 MINUTES. - Past Medical Family Social History Past Med/Fam/Surg Hx: No changes since H&P Allergies: Allergies No Known Drug Allergies Allergy (Unknown, Verified 02/11/21 09:36) Onset Date: 02/11/2021 - Review of Systems ROS: No change since H&P - Vital Signs and I&O's Vital Signs: Vital Signs Temperature 97.5 F Pulse Rate 50 Pulse Rate 54 Pulse Rate 61 Pulse Rate 54 Pulse Rate 51 Pulse Rate 54 Respiratory Rate 22 Respiratory Rate 22 Respiratory Rate 32 Respiratory Rate 26 Respiratory Rate 14 Respiratory Rate 28 Blood Pressure 145/66 Blood Pressure 135/63 Blood Pressure 142/91 Blood Pressure 166/86 Blood Pressure 137/71 Blood Pressure 167/88 O2 Sat by Pulse Oximetry 90 O2 Sat by Pulse Oximetry 93 O2 Sat by Pulse Oximetry 90 O2 Sat by Pulse Oximetry 93 O2 Sat by Pulse Oximetry 92 O2 Sat by Pulse Oximetry 92 Intake and Output: Intake & Output 10/23/23 10/24/23 10/25/23 10/26/23 11:59 11:59 11:59 11:59 Intake Total 110 / 110 780 / 780 1140 / 1140 Output Total 1100 / 1100 1550 / 1550 Balance 110 / 110 -320 / -320 -410 / -410 - Physical Exam Oriented: Normal Eyes: Normal Ear: Normal Nose: Normal Throat: Normal Respiratory: Generalized, Diminished Cardiovascular: Normal : Normal Auscultation: Bowel Sounds: Normal Tenderness: Normal Skin: Normal Musculoskeletal: Normal Psychiatric: Normal Mood Description: Calm Affect: Normal Speech Pattern: Clear, Appropriate - Laboratory and Diagnostics Result Diagrams: 10/25/23 04:42 10/25/23 04:42 Labs: 10/22/23 18:34 Blood Blood Culture - Preliminary 10/22/23 18:30 Blood Blood Culture - Preliminary Laboratory WBC 14.5 X10^3/uL (3.6-10.0) H 10/25/23 04:42 RBC 5.94 X10^6/uL (4.7-6.0) 10/25/23 04:42 Hgb 18.2 g/dL (13.5-18.0) H 10/25/23 04:42 Hct 57.1 % (42.0-54.0) H* 10/25/23 04:42 MCV 96.2 fL (80.0-100.0) 10/25/23 04:42 MCH 30.6 pg (27.0-34.0) 10/25/23 04:42 MCHC 31.8 g/dL (33.0-35.0) L 10/25/23 04:42 RDW 16.1 % (11.6-16.5) 10/25/23 04:42 Plt Count 93 X10^3/uL (150.0-450.0) L 10/25/23 04:42 Plt Count Comment Decreased (ADEQUATE) 10/25/23 04:42 MPV 8.7 fL (7.4-11.0) 10/25/23 04:42 Neut % (Auto) 92.7 % (42.0-75.0) H 10/25/23 04:42 Lymph % (Auto) 3.2 % (21.0-51.0) L 10/25/23 04:42 [place] % (Auto) 3.9 % (0.0-13.0) 10/25/23 04:42 Eos % (Auto) 0.0 % (0.9-2.9) L 10/25/23 04:42 Baso % (Auto) 0.2 % (0.2-1.0) 10/25/23 04:42 Neut # (Auto) 13.4 x10^3/uL (2.2-4.8) H 10/25/23 04:42 Lymph # (Auto) 0.5 X10^3/uL (1.3-2.9) L 10/25/23 04:42 [place] # (Auto) 0.6 x10^3/uL (0.3-0.8) 10/25/23 04:42 Eos # (Auto) 0.0 x10^3/uL (0.0-0.2) 10/25/23 04:42 Baso # (Auto) 0.0 X10^3/uL (0.0-0.1) 10/25/23 04:42 Absolute Nucleated RBC 0.2 /100WBC 10/25/23 04:42 Total Counted 100 10/25/23 04:42 Neutrophils % (Manual) 91 % (39-76) H 10/25/23 04:42 Band Neutrophils % 1 % (0-10) 10/25/23 04:42 Lymphocytes % (Manual) 6 % (13-43) L 10/25/23 04:42 Monocytes % (Manual) 2 % (4-9) L 10/25/23 04:42 Giant Platelets Few 10/22/23 18:30 Plt Morphology Comment Normal (NORMAL) 10/25/23 04:42 RBC Morphology Normal (NORMAL) 10/25/23 04:42 Anisocytosis Slight A 10/22/23 18:30 PT 16.4 SECONDS (11.8-14.3) 10/22/23 18:50 INR Target Range - 10/22/23 18:50 INR 1.35 (0.8-1.3) H 10/22/23 18:50 APTT 35.6 SECONDS (22.9-36.5) 10/22/23 18:50 PTT Comment - 10/22/23 18:50 D-Dimer 10.74 ug/ml (0.0-0.57) H 10/23/23 09:03 Sample Site Lr 10/23/23 05:00 ABG pH 7.490 (7.35-7.45) H 10/23/23 05:00 ABG pCO2 30.0 mmHg (35.0-45.0) L 10/23/23 05:00 ABG pO2 54.0 mmHg (80.0-100.0) L 10/23/23 05:00 ABG HCO3 22.9 mmol/L (22-26) 10/23/23 05:00 ABG O2 Saturation 90.0 % (90-100) 10/23/23 05:00 ABG Base Excess 0.3 mmol/L (-2.0-2.0) 10/23/23 05:00 Ganesh Test Pos 10/23/23 05:00 A-a Gradient 279.0 mmHg 10/23/23 05:00 FiO2 52.0 10/23/23 05:00 Blood Gas Comments Monika well 10/23/23 05:00 Sodium 137 mmol/L (136-145) 10/25/23 04:42 Corrected Sodium 138 mmol/L (136-145) 10/25/23 04:42 Potassium 4.5 mmol/L (3.5-5.1) 10/25/23 04:42 Chloride 106 mmol/L (98-107) 10/25/23 04:42 Carbon Dioxide 27.3 mmol/L (21-32) 10/25/23 04:42 BUN 38 mg/dL (7-18) H 10/25/23 04:42 Creatinine 1.11 mg/dL (0.70-1.30) 10/25/23 04:42 Est GFR (MDRD) Af Amer > 60 (>60) 10/25/23 04:42 Est GFR (MDRD) Non-Af > 60 (>60) 10/25/23 04:42 Glucose 122 mg/dL (65-99) H 10/25/23 04:42 Lactic Acid 1.7 mmol/L (0.4-2.0) 10/23/23 08:15 Calcium 8.4 mg/dL (8.5-10.1) L 10/25/23 04:42 Corrected Calcium 9.8 mg/dL (8.5-10.1) 10/25/23 04:42 Magnesium 2.3 mg/dL (2.0-2.9) 10/23/23 04:11 Total Bilirubin 0.80 mg/dL (0.2-1.0) 10/25/23 04:42 AST 39 Units/L (15-37) H 10/25/23 04:42 ALT 41 Units/L (12-78) 10/25/23 04:42 Alkaline Phosphatase 80 Units/L (46-116) 10/25/23 04:42 Creatine Kinase 55 Units/L (39-308) 10/23/23 00:20 Troponin I High Sens 834.7 ng/L (4.0-60.0) H* 10/23/23 06:50 C-Reactive Protein 17.30 mg/L (0-3.0) H 10/25/23 04:42 B-Natriuretic Peptide 379 pg/mL (0-79) H 10/24/23 05:02 Total Protein 6.1 g/dL (6.4-8.2) L 10/25/23 04:42 Albumin 2.2 g/dL (3.4-5.0) L 10/25/23 04:42 Globulin 3.9 g/dL (2.5-4.5) 10/25/23 04:42 Albumin/Globulin Ratio 0.6 Ratio (1.1-2.1) L 10/25/23 04:42 SARS-CoV-2 (PCR) Positive (NEGATIVE) A 10/22/23 20:47 Influenza Type A (PCR) Negative (NEGATIVE) 10/22/23 20:47 Influenza Type B (PCR) Negative (NEGATIVE) 10/22/23 20:47 RSV (PCR) Negative (NEGATIVE) 10/22/23 20:47 - Plan (1) Acute hypoxemic respiratory failure due to COVID-19 Status: Acute Plan: ADMIT, SUPPLEMENTAL OXYGEN, PAXLOVID, SOLU-MEDROL 80MG IV Q8H, PULMICORT NEBS BID, ROBITUSSIN DM 10 ML QID, TUSSIONEX 5ML Q12H PRN, LEVAQUIN 500MG IV DAILY, TESSALON PERLES 200MG DAILY. HIS HOME MEDS OF COLACE, LASIX, METOPROLOL, PROTONIX WERE RESUMED. (2) Bronchopneumonia Status: Acute (3) PRIMO (acute kidney injury) Status: Acute (4) Non-ST elevation IN (NSTEMI) Status: Acute Plan: CARDIOLOGY CONSULT (5) HTN (hypertension) Status: Acute Qualifiers: Hypertension type: primary hypertension Qualified Code(s): I10 - Essential (primary) hypertension (6) COPD (chronic obstructive pulmonary disease) Status: Chronic Qualifiers: COPD type: unspecified COPD Qualified Code(s): J44.9 - Chronic obstructive pulmonary disease, unspecified (7) Hyperlipidemia Status: Chronic Qualifiers: Hyperlipidemia type: mixed hyperlipidemia Qualified Code(s): E78.2 - Mixed hyperlipidemia (8) Pulmonary fibrosis Status: Chronic
--- NOTE | 2023-10-25 14:03 | NOTE.SOAP ---
Soap Note Note for Day of Date of Exam: 10/25/23 Subjective Data Subjective Data: continues to improve, sob better, no cp Objective Data Objective Data: had phlebotomy yesterday with hct 57 ( more today per ) bp 130 w amlodipine, hr 50-60 cardiac meds: asa/bb/ccb/statin Assessment Assessment: covid with sign hypoxia, troponin bump with this but no ekg changes and echo ef same as last year- pa pressures much higher- polycythemia being treated with phlebotomy Plan Plan: cont same
[2023-10-26 05:09] LABS: BASOPHILS % (AUTO) 0.2 % (0.2-1.0); LYMPHOCYTES # (AUTO) 0.4 X10^3/uL (1.3-2.9); LYMPHOCYTES % (AUTO) 2.5 % (21.0-51.0); MEAN CORPUSCULAR HEMOGLOBIN 30.6 pg (27.0-34.0); MEAN CORPUSCULAR VOLUME 95.7 fL (80.0-100.0); MEAN PLATELET VOLUME 8.8 fL (7.4-11.0); MONOCYTES # (AUTO) 0.7 x10^3/uL (0.3-0.8); MONOCYTES % (AUTO) 4.3 % (0.0-13.0); NEUTROPHILS # (AUTO) 14.6 x10^3/uL (2.2-4.8); PLATELET COUNT 88 X10^3/uL (150.0-450.0); RED BLOOD COUNT 5.87 X10^6/uL (4.7-6.0); RED CELL DISTRIBUTION WIDTH 15.9 % (11.6-16.5); WHITE BLOOD COUNT 15.7 X10^3/uL (3.6-10.0)
[2023-10-26 05:16] LABS: ALANINE AMINOTRANSFERASE 43 Units/L (12-78); ALBUMIN 2.2 g/dL (3.4-5.0); ALKALINE PHOSPHATASE 78 Units/L (46-116); ASPARTATE AMINO TRANSFERASE 33 Units/L (15-37); BLOOD UREA NITROGEN 30 mg/dL (7-18); CALCIUM 8.1 mg/dL (8.5-10.1); CARBON DIOXIDE 29.8 mmol/L (21-32); CHLORIDE 108 mmol/L (98-107); COR CA(FOR HYPOALB) 9.5 mg/dL (8.5-10.1); CREATININE 1.08 mg/dL (0.70-1.30); GLUCOSE 103 mg/dL (65-99); POTASSIUM 4.3 mmol/L (3.5-5.1); SODIUM 142 mmol/L (136-145); TOTAL PROTEIN 5.8 g/dL (6.4-8.2); eGFR NON BLACK RACES > 60 (>60)
--- NOTE | 2023-10-26 05:29 | RAD ---
EXAM:CHEST, 1 VIEWHISTORY:SOB;COMPARISON:10/25/2023 r.br.br.br unremarkable. Changes of prior CABG surgery. The lungs are clear without focal infiltrate or effusion. The bony thorax is unremarkable.IMPRESSION:Mild cardiomegalyNo active cardiopulmonary diseaseTHIS IS AN ELECTRONICALLY VERIFIED FINAL REPORT10/26/2023 5:25 AM - Electronically signed by Dylon Tubbs MD
[2023-10-26 05:48] LABS: HEMATOCRIT 56.2 % (42.0-54.0); PLATELET MORPHOLOGY COMMENT NORMAL (NORMAL); TEAR DROP CELLS PRESENT
[2023-10-26] MEDS: SOLU-Medrol 40 MG VIAL IVP SCH ×4 (05:54→21:25)
[2023-10-26] MEDS: PULMICORT NEB TX 0.5 MG NEB SCH ×2 (08:30→20:50)
[2023-10-26] MEDS: COLACE CAP 100 MG PO SCH ×2 (08:33→21:19)
[2023-10-26] MEDS: LOPRESSOR TAB 50 MG PO SCH ×2 (08:33→21:19)
[2023-10-26] MEDS: NORVASC TAB 5 MG PO SCH ×2 (08:33→21:19)
[2023-10-26] MEDS: TESSALON PERLES PO SCH (08:33)
[2023-10-26] MEDS: PAXLOVID CO-PACK (EUA) PO SCH ×3 (08:34→21:19)
[2023-10-26] MEDS: PROTONIX TAB 40 MG PO SCH ×2 (08:34→21:19)
--- NOTE | 2023-10-26 10:48 | PCM.PROG ---
Progress Note - Progress Note for Day of Date of Exam: 10/26/23 - Subjective Subjective: IS CURRENTLY INPATIENT STATUS FOR TRETAMENT OF ACUTE HYPOXEMIC RESPIRATORY FAILURE DUE TO COVID-19, BRONCHOPNEUMONIA, ACUTE KIDNEY INJURY, NON-STEMI. HIS HX INCLUDES: PULMONARY FIBROSIS, COPD, HYPERLIPIDEMIA, GERD. TODAY, HE IS ALERT AND ORIENTED, SITTING UP IN BED ON MORNING ROUNDS. HE REPORTS SOME IMPROVEMENT IN COUGH AND SHORTNESS OF BREATH THIS MORNING. HE REPORTS THAT SHORTNESS OF BREATH IS WORSE ON EXTERTION. HE DENIES CHEST PAIN OR OTHER SYMPTOMS. HE IS UTILIZING OXYGEN VIA NASAL CANNULA AT 3.5 LPM THIS MORNING. HIS OXYGEN SATURATIONS HAVE BEEN 87-88% MOST OF THE NIGHT AND THIS MORNING. ON EXAMINATION, HEART IS REGULAR IN RATE AND RHYHTM. BILATERAL LUNGS ARE NOTED WITH DIMINISHED LUNG SOUNDS THROUGHOUT. ABDOMEN IS ROUND, SOFT, AND NON-TENDER WITH NORMAL BOWEL SOUNDS NOTED IN ALL QUADRANTS. GOOD RANGE OF MOTION NOTED TO UPPER AND LOWER EXTREMITIES WITH NO EDEMA NOTED. HIS VITALS THIS MORNING ARE: 98.9-65-26-87%-146/74. LABS WERE OBTAINED. WBC 15.7, RBC 5.87, HGB 18.0, HCT 56.2, PLT COUNT 88, SODIUM 142, POTASSIUM 4.3, BUN 30, CREATININE 1.08, GLUCOSE 103, CALCIUM 8.1, AST 33, ALT 43, ALK PHOS 78, CRP 8.50, TOTAL PROTEIN 5.8, ALBUMIN 2.2. BLOOD CULTURES ARE PENDING. A CHEST XRAY WAS OBTAINED AND REVEALED: unremarkable. Changes of prior CABG surgery. The lungs are clear without focal infiltrate or effusion. The bony thorax is unremarkable. HE IS CURRENTLY RECEIVING PAXLOVID, SOLU-MEDROL 80MG IV Q8H, PULMICORT NEBS BID, ROBITUSSIN DM 10 ML QID, TUSSIONEX 5ML Q12H PRN, LEVAQUIN 500MG IV DAILY, TESSALON PERLES 200MG DAILY, NORVASC 5MG DAILY. HIS HOME MEDS OF COLACE, LASIX, METOPROLOL, PROTONIX WERE RESUMED. OTHERWISE, WE WILL CONTINUE WITH CURRENT PLAN OF CARE TODAY. WE WILL FOLLOW-UP WITH AM LABS AND CHEST XRAY AND CONTINUE TO MONITOR. TIME SPENT ON CLINICAL ASSESSMENT, REVIEWING LABS AND IMAGING, DECISION MAKING, AND DOCUMENTATION GREATER THAN 45 MINUTES. - Past Medical Family Social History Past Med/Fam/Surg Hx: No changes since H&P Allergies: Allergies No Known Drug Allergies Allergy (Unknown, Verified 02/11/21 09:36) Onset Date: 02/11/2021 - Review of Systems ROS: No change since H&P - Vital Signs and I&O's Vital Signs: Vital Signs Temperature 98.9 F Temperature 98.5 F Pulse Rate 67 Pulse Rate 65 Pulse Rate 52 Pulse Rate 70 Pulse Rate 78 Pulse Rate 71 Pulse Rate 56 Pulse Rate 56 Pulse Rate 49 Pulse Rate 52 Pulse Rate 51 Pulse Rate 51 Respiratory Rate 23 Respiratory Rate 26 Respiratory Rate 26 Respiratory Rate 22 Respiratory Rate 25 Respiratory Rate 15 Respiratory Rate 23 Respiratory Rate 27 Respiratory Rate 18 Respiratory Rate 23 Respiratory Rate 29 Respiratory Rate 29 Blood Pressure 173/89 Blood Pressure 146/74 Blood Pressure 164/83 Blood Pressure 164/83 Blood Pressure 166/80 Blood Pressure 166/80 Blood Pressure 138/80 Blood Pressure 138/80 Blood Pressure 156/70 Blood Pressure 156/70 O2 Sat by Pulse Oximetry 87 O2 Sat by Pulse Oximetry 87 O2 Sat by Pulse Oximetry 88 O2 Sat by Pulse Oximetry 82 O2 Sat by Pulse Oximetry 79 O2 Sat by Pulse Oximetry 85 O2 Sat by Pulse Oximetry 87 O2 Sat by Pulse Oximetry 88 O2 Sat by Pulse Oximetry 89 O2 Sat by Pulse Oximetry 88 O2 Sat by Pulse Oximetry 87 O2 Sat by Pulse Oximetry 87 Intake and Output: Intake & Output 10/23/23 10/24/23 10/25/23 10/26/23 11:59 11:59 11:59 11:59 Intake Total 110 / 110 780 / 780 1140 / 1140 760 / 760 Output Total 1100 / 1100 1550 / 1550 1400 / 1400 Balance 110 / 110 -320 / -320 -410 / -410 -640 / -640 - Physical Exam Oriented: Normal Eyes: Normal Ear: Normal Nose: Normal Throat: Normal Respiratory: Generalized, Diminished Cardiovascular: Normal : Normal Auscultation: Bowel Sounds: Normal Tenderness: Normal Skin: Normal Musculoskeletal: Normal Psychiatric: Normal Mood Description: Calm Affect: Normal Speech Pattern: Clear, Appropriate - Laboratory and Diagnostics Result Diagrams: 10/26/23 04:17 10/26/23 04:17 Labs: 10/22/23 18:34 Blood Blood Culture - Preliminary 10/22/23 18:30 Blood Blood Culture - Preliminary Laboratory WBC 15.7 X10^3/uL (3.6-10.0) H 10/26/23 04:17 RBC 5.87 X10^6/uL (4.7-6.0) 10/26/23 04:17 Hgb 18.0 g/dL (13.5-18.0) 10/26/23 04:17 Hct 56.2 % (42.0-54.0) H* 10/26/23 04:17 MCV 95.7 fL (80.0-100.0) 10/26/23 04:17 MCH 30.6 pg (27.0-34.0) 10/26/23 04:17 MCHC 32.0 g/dL (33.0-35.0) L 10/26/23 04:17 RDW 15.9 % (11.6-16.5) 10/26/23 04:17 Plt Count 88 X10^3/uL (150.0-450.0) L 10/26/23 04:17 Plt Count Comment Decreased (ADEQUATE) 10/26/23 04:17 MPV 8.8 fL (7.4-11.0) 10/26/23 04:17 Neut % (Auto) 93.0 % (42.0-75.0) H 10/26/23 04:17 Lymph % (Auto) 2.5 % (21.0-51.0) L 10/26/23 04:17 Amelia % (Auto) 4.3 % (0.0-13.0) 10/26/23 04:17 Eos % (Auto) 0.0 % (0.9-2.9) L 10/26/23 04:17 Baso % (Auto) 0.2 % (0.2-1.0) 10/26/23 04:17 Neut # (Auto) 14.6 x10^3/uL (2.2-4.8) H 10/26/23 04:17 Lymph # (Auto) 0.4 X10^3/uL (1.3-2.9) L 10/26/23 04:17 Amelia # (Auto) 0.7 x10^3/uL (0.3-0.8) 10/26/23 04:17 Eos # (Auto) 0.0 x10^3/uL (0.0-0.2) 10/26/23 04:17 Baso # (Auto) 0.0 X10^3/uL (0.0-0.1) 10/26/23 04:17 Absolute Nucleated RBC 0.1 /100WBC 10/26/23 04:17 Total Counted 100 10/26/23 04:17 Neutrophils % (Manual) 92 % (39-76) H 10/26/23 04:17 Band Neutrophils % 1 % (0-10) 10/25/23 04:42 Lymphocytes % (Manual) 4 % (13-43) L 10/26/23 04:17 Monocytes % (Manual) 4 % (4-9) 10/26/23 04:17 Giant Platelets Few 10/22/23 18:30 Plt Morphology Comment Normal (NORMAL) 10/26/23 04:17 RBC Morphology Abnormal (NORMAL) 10/26/23 04:17 Anisocytosis Slight A 10/22/23 18:30 Tear Drop Cells Present 10/26/23 04:17 PT 16.4 SECONDS (11.8-14.3) 10/22/23 18:50 INR Target Range - 10/22/23 18:50 INR 1.35 (0.8-1.3) H 10/22/23 18:50 APTT 35.6 SECONDS (22.9-36.5) 10/22/23 18:50 PTT Comment - 10/22/23 18:50 D-Dimer 10.74 ug/ml (0.0-0.57) H 10/23/23 09:03 Sample Site Lr 10/23/23 05:00 ABG pH 7.490 (7.35-7.45) H 10/23/23 05:00 ABG pCO2 30.0 mmHg (35.0-45.0) L 10/23/23 05:00 ABG pO2 54.0 mmHg (80.0-100.0) L 10/23/23 05:00 ABG HCO3 22.9 mmol/L (22-26) 10/23/23 05:00 ABG O2 Saturation 90.0 % (90-100) 10/23/23 05:00 ABG Base Excess 0.3 mmol/L (-2.0-2.0) 10/23/23 05:00 Ganesh Test Pos 10/23/23 05:00 A-a Gradient 279.0 mmHg 10/23/23 05:00 FiO2 52.0 10/23/23 05:00 Blood Gas Comments Monika well 10/23/23 05:00 Sodium 142 mmol/L (136-145) 10/26/23 04:17 Corrected Sodium TNP 10/26/23 04:17 Potassium 4.3 mmol/L (3.5-5.1) 10/26/23 04:17 Chloride 108 mmol/L (98-107) H 10/26/23 04:17 Carbon Dioxide 29.8 mmol/L (21-32) 10/26/23 04:17 BUN 30 mg/dL (7-18) H 10/26/23 04:17 Creatinine 1.08 mg/dL (0.70-1.30) 10/26/23 04:17 Est GFR (MDRD) Af Amer > 60 (>60) 10/26/23 04:17 Est GFR (MDRD) Non-Af > 60 (>60) 10/26/23 04:17 Glucose 103 mg/dL (65-99) H 10/26/23 04:17 Lactic Acid 1.7 mmol/L (0.4-2.0) 10/23/23 08:15 Calcium 8.1 mg/dL (8.5-10.1) L 10/26/23 04:17 Corrected Calcium 9.5 mg/dL (8.5-10.1) 10/26/23 04:17 Magnesium 2.3 mg/dL (2.0-2.9) 10/23/23 04:11 Total Bilirubin 0.70 mg/dL (0.2-1.0) 10/26/23 04:17 AST 33 Units/L (15-37) 10/26/23 04:17 ALT 43 Units/L (12-78) 10/26/23 04:17 Alkaline Phosphatase 78 Units/L (46-116) 10/26/23 04:17 Creatine Kinase 55 Units/L (39-308) 10/23/23 00:20 Troponin I High Sens 834.7 ng/L (4.0-60.0) H* 10/23/23 06:50 C-Reactive Protein 8.50 mg/L (0-3.0) H 10/26/23 04:17 B-Natriuretic Peptide 379 pg/mL (0-79) H 10/24/23 05:02 Total Protein 5.8 g/dL (6.4-8.2) L 10/26/23 04:17 Albumin 2.2 g/dL (3.4-5.0) L 10/26/23 04:17 Globulin 3.6 g/dL (2.5-4.5) 10/26/23 04:17 Albumin/Globulin Ratio 0.6 Ratio (1.1-2.1) L 10/26/23 04:17 SARS-CoV-2 (PCR) Positive (NEGATIVE) A 10/22/23 20:47 Influenza Type A (PCR) Negative (NEGATIVE) 10/22/23 20:47 Influenza Type B (PCR) Negative (NEGATIVE) 10/22/23 20:47 RSV (PCR) Negative (NEGATIVE) 10/22/23 20:47 - Plan (1) Acute hypoxemic respiratory failure due to COVID-19 Status: Acute Plan: ADMIT, SUPPLEMENTAL OXYGEN, PAXLOVID, SOLU-MEDROL 80MG IV Q8H, PULMICORT NEBS BID, ROBITUSSIN DM 10 ML QID, TUSSIONEX 5ML Q12H PRN, LEVAQUIN 500MG IV DAILY, TESSALON PERLES 200MG DAILY. HIS HOME MEDS OF COLACE, LASIX, METOPROLOL, PROTONIX WERE RESUMED. (2) Bronchopneumonia Status: Acute (3) PRIMO (acute kidney injury) Status: Acute (4) Non-ST elevation [place] (NSTEMI) Status: Acute Plan: CARDIOLOGY CONSULT (5) HTN (hypertension) Status: Acute Qualifiers: Hypertension type: primary hypertension Qualified Code(s): I10 - Essential (primary) hypertension (6) COPD (chronic obstructive pulmonary disease) Status: Chronic Qualifiers: COPD type: unspecified COPD Qualified Code(s): J44.9 - Chronic obstructive pulmonary disease, unspecified (7) Hyperlipidemia Status: Chronic Qualifiers: Hyperlipidemia type: mixed hyperlipidemia Qualified Code(s): E78.2 - Mixed hyperlipidemia (8) Pulmonary fibrosis Status: Chronic
--- NOTE | 2023-10-26 14:10 | NOTE.SOAP ---
Soap Note Note for Day of Date of Exam: 10/26/23 Subjective Data Subjective Data: feels better but O2 sats still 80s Objective Data Objective Data: bp 150/100 labs: hct 56 cr 1.09 bnp 379 yesterday Assessment Assessment: nstemi/severe hypoxia/covid/pulm htn/htn/polycthemia Plan Plan: resume asa/push ccb for htn/pulm htn
[2023-10-26] MEDS: ASPIRIN PO SCH (21:19)
[2023-10-27 05:19] LABS: BASOPHILS % (AUTO) 0.2 % (0.2-1.0); HEMOGLOBIN 18.3 g/dL (13.5-18.0); LYMPHOCYTES # (AUTO) 0.5 X10^3/uL (1.3-2.9); LYMPHOCYTES % (AUTO) 3.3 % (21.0-51.0); MEAN CORPUSCULAR HEMOGLOBIN 30.6 pg (27.0-34.0); MEAN CORPUSCULAR HGB CONC 31.9 g/dL (33.0-35.0); MEAN CORPUSCULAR VOLUME 95.9 fL (80.0-100.0); MEAN PLATELET VOLUME 8.9 fL (7.4-11.0); MONOCYTES # (AUTO) 0.7 x10^3/uL (0.3-0.8); MONOCYTES % (AUTO) 4.4 % (0.0-13.0); NEUTROPHILS # (AUTO) 14.2 x10^3/uL (2.2-4.8); NEUTROPHILS % (AUTO) 92.1 % (42.0-75.0); PLATELET COUNT 90 X10^3/uL (150.0-450.0); RED BLOOD COUNT 5.99 X10^6/uL (4.7-6.0); RED CELL DISTRIBUTION WIDTH 15.8 % (11.6-16.5); WHITE BLOOD COUNT 15.4 X10^3/uL (3.6-10.0)
[2023-10-27 05:37] LABS: HEMATOCRIT 57.4 % (42.0-54.0)
--- NOTE | 2023-10-27 05:38 | RAD ---
EXAM:CHEST, 1 VIEWHISTORY:SOB ;COMPARISON:10/26/2023FINDINGS:The trachea is midline. The cardiac silhouette is unremarkable. Changes of prior CABG surgery. Subtle increased interstitial markings within the left lung base consistent with subsegmental atelectasis and/or infiltrate. The right lung is clear.. The bony thorax is unremarkable.IMPRESSION:Subtle increased interstitial markings within the left lung base consistent with subsegmental atelectasis and/or infiltrate.THIS IS AN ELECTRONICALLY VERIFIED FINAL REPORT10/27/2023 5:34 AM - Electronically signed by Dylon Tubbs MD
[2023-10-27 05:39] LABS: ALANINE AMINOTRANSFERASE 44 Units/L (12-78); ALBUMIN 2.3 g/dL (3.4-5.0); ALKALINE PHOSPHATASE 84 Units/L (46-116); ASPARTATE AMINO TRANSFERASE 36 Units/L (15-37); BLOOD UREA NITROGEN 33 mg/dL (7-18); CALCIUM 8.1 mg/dL (8.5-10.1); CARBON DIOXIDE 25.9 mmol/L (21-32); CHLORIDE 106 mmol/L (98-107); COR CA(FOR HYPOALB) 9.5 mg/dL (8.5-10.1); COR NA(FOR HYPERGLY) 143 mmol/L (136-145); CREATININE 1.04 mg/dL (0.70-1.30); GLUCOSE 130 mg/dL (65-99); POTASSIUM 4.3 mmol/L (3.5-5.1); SODIUM 142 mmol/L (136-145); TOTAL PROTEIN 6.1 g/dL (6.4-8.2); eGFR NON BLACK RACES > 60 (>60)
[2023-10-27 05:46] LABS: PLATELET MORPHOLOGY COMMENT NORMAL (NORMAL)
[2023-10-27 06:00] LABS: ABG BASE EXCESS 4.6 mmol/L (-2.0-2.0); ABG HCO3 28.3 mmol/L (22-26)
[2023-10-27 06:02] LABS: ABG ALLEN TEST POS
[2023-10-27] MEDS: SOLU-Medrol 40 MG VIAL IVP SCH ×3 (06:17→21:51)
[2023-10-27] MEDS: PULMICORT NEB TX 0.5 MG NEB SCH ×2 (08:56→20:11)
--- NOTE | 2023-10-27 09:55 | NOTE.SOAP ---
Soap Note Note for Day of Date of Exam: 10/27/23 Subjective Data Subjective Data: sob cont to improve but sats still in upper 80s Objective Data Objective Data: hct still 57, bp 150/70 p60 Assessment Assessment: covid/nstemi/pulm htn/copd/pulm fibrosis/polyctthemia Plan Plan: cont same- phlebotomy to drop hct 50- will let primary cardio know about trop bump- been 2 years since stress- let him decide
[2023-10-27] MEDS: LEVAQUIN PREMIX IV 750 MG 750 MG/150 ML BAG IV SCH (10:00)
[2023-10-27] MEDS: LOPRESSOR TAB 50 MG PO SCH ×2 (10:00→20:22)
[2023-10-27] MEDS: NORVASC TAB 5 MG PO SCH ×2 (10:00→20:22)
[2023-10-27] MEDS: ASPIRIN PO SCH (10:00)
[2023-10-27] MEDS: PROTONIX TAB 40 MG PO SCH ×2 (10:00→20:21)
[2023-10-27] MEDS: TESSALON PERLES PO SCH (10:20)
[2023-10-27] MEDS: COLACE CAP 100 MG PO SCH ×2 (10:21→20:21)
[2023-10-27] MEDS: PAXLOVID CO-PACK (EUA) PO SCH ×2 (10:22→20:22)
--- NOTE | 2023-10-27 11:40 | PCM.PROG ---
Progress Note - Progress Note for Day of Date of Exam: 10/27/23 - Subjective Subjective: IS CURRENTLY INPATIENT STATUS FOR TREATMENT OF ACUTE HYPOXEMIC RESPIRATORY FAILURE DUE TO COVID-19, BRONCHOPNEUMONIA, ACUTE KIDNEY INJURY, NON-STEMI. HIS HX INCLUDES: PULMONARY FIBROSIS, COPD, HYPERLIPIDEMIA, GERD. TODAY, HE IS ALERT AND ORIENTED, SITTING UP IN BED ON MORNING ROUNDS. HE REPORTS SOME IMPROVEMENT IN COUGH AND SHORTNESS OF BREATH THIS MORNING. HE REPORTS THAT SHORTNESS OF BREATH IS WORSE ON EXTERTION. HE DENIES CHEST PAIN OR OTHER SYMPTOMS. HE IS UTILIZING OXYGEN VIA NASAL CANNULA AT 3.5 LPM THIS MORNING. HIS OXYGEN SATURATIONS HAVE BEEN IN THE 80s MOST OF THE NIGHT AND THIS MORNING. ON EXAMINATION, HEART IS REGULAR IN RATE AND RHYHTM. BILATERAL LUNGS ARE NOTED WITH DIMINISHED LUNG SOUNDS THROUGHOUT. ABDOMEN IS ROUND, SOFT, AND NON-TENDER WITH NORMAL BOWEL SOUNDS NOTED IN ALL QUADRANTS. GOOD RANGE OF MOTION NOTED TO UPPER AND LOWER EXTREMITIES WITH NO EDEMA NOTED. HIS VITALS THIS MORNING ARE: 97.7-65-34-89%-158/87. LABS WERE OBTAINED. WBC 15.4, RBC 5.99, HGB 18.3, HCT 57.4, PLT COUNT 90, SODIUM 142, POTASSIUM 4.3, CHLORIDE 106, BUN 33, CREATININE 1.04, GLUCOSE 130, CALCIUM 8.1, AST 36, ALT 44, ALK PHOS 84, CRP 4.00, TOTAL PROTEIN 6.1, ALBUMIN 2.3. BLOOD CULTURES ARE PENDING. ABG REVEALED: PH 7.480, PC02 38, P02 42, HC03 28.3, 02 SAT 82, BASE EXCESS 4.6, FI02 34. A CHEST XRAY WAS OBTAINED AND REVEALED: Subtle increased interstitial markings within the left lung base consistent with subsegmental atelectasis and/or infiltrate. HE IS CURRENTLY RECEIVING PAXLOVID, SOLU-MEDROL 80MG IV Q8H, PULMICORT NEBS BID, ROBITUSSIN DM 10 ML QID, TUSSIONEX 5ML Q12H PRN, LEVAQUIN 750MG IV DAILY, TESSALON PERLES 200MG DAILY, NORVASC 5MG DAILY. HIS HOME MEDS OF COLACE, LASIX, METOPROLOL, PROTONIX WERE RESUMED. WE WILL CHANGE HIM TO AN OXYMASK AND INCREASE OXYGEN TO 5 LPM. WE WILL HAVE THE LAB DRAW OFF SOME MORE BLOOD TODAY. OTHERWISE, WE WILL CONTINUE WITH CURRENT PLAN OF CARE. WE WILL FOLLOW-UP WITH AM LABS AND CHEST XRAY AND CONTINUE TO MONITOR. TIME SPENT ON CLINICAL ASSESSMENT, REVIEWING LABS AND IMAGING, DECISION MAKING, AND DOCUMENTATION GREATER THAN 45 MINUTES. - Past Medical Family Social History Past Med/Fam/Surg Hx: No changes since H&P Allergies: Allergies No Known Drug Allergies Allergy (Unknown, Verified 02/11/21 09:36) Onset Date: 02/11/2021 - Review of Systems ROS: No change since H&P - Vital Signs and I&O's Vital Signs: Vital Signs Temperature 97.7 F Temperature 99.7 F Pulse Rate 65 Pulse Rate 58 Pulse Rate 58 Pulse Rate 57 Pulse Rate 58 Respiratory Rate 34 Respiratory Rate 33 Respiratory Rate 37 Respiratory Rate 37 Respiratory Rate 23 Blood Pressure 158/87 Blood Pressure 151/81 Blood Pressure 161/91 Blood Pressure 150/82 Blood Pressure 149/74 O2 Sat by Pulse Oximetry 89 O2 Sat by Pulse Oximetry 89 O2 Sat by Pulse Oximetry 86 O2 Sat by Pulse Oximetry 87 O2 Sat by Pulse Oximetry 86 Intake and Output: Intake & Output 10/24/23 10/25/23 10/26/23 10/27/23 11:59 11:59 11:59 11:59 Intake Total 780 / 780 1140 / 1140 760 / 760 820 / 820 Output Total 1100 / 1100 1550 / 1550 1400 / 1400 750 / 750 Balance -320 / -320 -410 / -410 -640 / -640 70 / 70 - Physical Exam Oriented: Normal Eyes: Normal Ear: Normal Nose: Normal Throat: Normal Respiratory: Generalized, Diminished Cardiovascular: Normal : Normal Auscultation: Bowel Sounds: Normal Tenderness: Normal Skin: Normal Musculoskeletal: Normal Psychiatric: Normal Mood Description: Calm Affect: Normal Speech Pattern: Clear, Appropriate - Laboratory and Diagnostics Result Diagrams: 10/27/23 04:50 10/27/23 04:50 Labs: 10/22/23 18:34 Blood Blood Culture - Preliminary 10/22/23 18:30 Blood Blood Culture - Preliminary Laboratory WBC 15.4 X10^3/uL (3.6-10.0) H 10/27/23 04:50 RBC 5.99 X10^6/uL (4.7-6.0) 10/27/23 04:50 Hgb 18.3 g/dL (13.5-18.0) H 10/27/23 04:50 Hct 57.4 % (42.0-54.0) H* 10/27/23 04:50 MCV 95.9 fL (80.0-100.0) 10/27/23 04:50 MCH 30.6 pg (27.0-34.0) 10/27/23 04:50 MCHC 31.9 g/dL (33.0-35.0) L 10/27/23 04:50 RDW 15.8 % (11.6-16.5) 10/27/23 04:50 Plt Count 90 X10^3/uL (150.0-450.0) L 10/27/23 04:50 Plt Count Comment Decreased (ADEQUATE) 10/27/23 04:50 MPV 8.9 fL (7.4-11.0) 10/27/23 04:50 Neut % (Auto) 92.1 % (42.0-75.0) H 10/27/23 04:50 Lymph % (Auto) 3.3 % (21.0-51.0) L 10/27/23 04:50 Irwin % (Auto) 4.4 % (0.0-13.0) 10/27/23 04:50 Eos % (Auto) 0.0 % (0.9-2.9) L 10/27/23 04:50 Baso % (Auto) 0.2 % (0.2-1.0) 10/27/23 04:50 Neut # (Auto) 14.2 x10^3/uL (2.2-4.8) H 10/27/23 04:50 Lymph # (Auto) 0.5 X10^3/uL (1.3-2.9) L 10/27/23 04:50 Irwin # (Auto) 0.7 x10^3/uL (0.3-0.8) 10/27/23 04:50 Eos # (Auto) 0.0 x10^3/uL (0.0-0.2) 10/27/23 04:50 Baso # (Auto) 0.0 X10^3/uL (0.0-0.1) 10/27/23 04:50 Absolute Nucleated RBC 0.0 /100WBC 10/27/23 04:50 Total Counted 100 10/27/23 04:50 Neutrophils % (Manual) 92 % (39-76) H 10/27/23 04:50 Band Neutrophils % 1 % (0-10) 10/25/23 04:42 Lymphocytes % (Manual) 5 % (13-43) L 10/27/23 04:50 Monocytes % (Manual) 3 % (4-9) L 10/27/23 04:50 Giant Platelets Few 10/22/23 18:30 Plt Morphology Comment Normal (NORMAL) 10/27/23 04:50 RBC Morphology Normal (NORMAL) 10/27/23 04:50 Anisocytosis Slight A 10/22/23 18:30 Tear Drop Cells Present 10/26/23 04:17 PT 16.4 SECONDS (11.8-14.3) 10/22/23 18:50 INR Target Range - 10/22/23 18:50 INR 1.35 (0.8-1.3) H 10/22/23 18:50 APTT 35.6 SECONDS (22.9-36.5) 10/22/23 18:50 PTT Comment - 10/22/23 18:50 D-Dimer 10.74 ug/ml (0.0-0.57) H 10/23/23 09:03 Sample Site L rad 10/27/23 05:55 ABG pH 7.480 (7.35-7.45) H 10/27/23 05:55 ABG pCO2 38.0 mmHg (35.0-45.0) 10/27/23 05:55 ABG pO2 42.0 mmHg (80.0-100.0) L* 10/27/23 05:55 ABG HCO3 28.3 mmol/L (22-26) H 10/27/23 05:55 ABG O2 Saturation 82.0 % (90-100) L* 10/27/23 05:55 ABG Base Excess 4.6 mmol/L (-2.0-2.0) H 10/27/23 05:55 Ganesh Test Pos 10/27/23 05:55 A-a Gradient 153.0 mmHg 10/27/23 05:55 FiO2 34.0 10/27/23 05:55 Blood Gas Comments Pt makeda well 10/27/23 05:55 Sodium 142 mmol/L (136-145) 10/27/23 04:50 Corrected Sodium 143 mmol/L (136-145) 10/27/23 04:50 Potassium 4.3 mmol/L (3.5-5.1) 10/27/23 04:50 Chloride 106 mmol/L (98-107) 10/27/23 04:50 Carbon Dioxide 25.9 mmol/L (21-32) 10/27/23 04:50 BUN 33 mg/dL (7-18) H 10/27/23 04:50 Creatinine 1.04 mg/dL (0.70-1.30) 10/27/23 04:50 Est GFR (MDRD) Af Amer > 60 (>60) 10/27/23 04:50 Est GFR (MDRD) Non-Af > 60 (>60) 10/27/23 04:50 Glucose 130 mg/dL (65-99) H 10/27/23 04:50 Lactic Acid 1.7 mmol/L (0.4-2.0) 10/23/23 08:15 Calcium 8.1 mg/dL (8.5-10.1) L 10/27/23 04:50 Corrected Calcium 9.5 mg/dL (8.5-10.1) 10/27/23 04:50 Magnesium 2.3 mg/dL (2.0-2.9) 10/23/23 04:11 Total Bilirubin 0.80 mg/dL (0.2-1.0) 10/27/23 04:50 AST 36 Units/L (15-37) 10/27/23 04:50 ALT 44 Units/L (12-78) 10/27/23 04:50 Alkaline Phosphatase 84 Units/L (46-116) 10/27/23 04:50 Creatine Kinase 55 Units/L (39-308) 10/23/23 00:20 Troponin I High Sens 834.7 ng/L (4.0-60.0) H* 10/23/23 06:50 C-Reactive Protein 4.00 mg/L (0-3.0) H 10/27/23 04:50 B-Natriuretic Peptide 379 pg/mL (0-79) H 10/24/23 05:02 Total Protein 6.1 g/dL (6.4-8.2) L 10/27/23 04:50 Albumin 2.3 g/dL (3.4-5.0) L 10/27/23 04:50 Globulin 3.8 g/dL (2.5-4.5) 10/27/23 04:50 Albumin/Globulin Ratio 0.6 Ratio (1.1-2.1) L 10/27/23 04:50 SARS-CoV-2 (PCR) Positive (NEGATIVE) A 10/22/23 20:47 Influenza Type A (PCR) Negative (NEGATIVE) 10/22/23 20:47 Influenza Type B (PCR) Negative (NEGATIVE) 10/22/23 20:47 RSV (PCR) Negative (NEGATIVE) 10/22/23 20:47 - Plan (1) Acute hypoxemic respiratory failure due to COVID-19 Status: Acute Plan: SUPPLEMENTAL OXYGEN, PAXLOVID, SOLU-MEDROL 80MG IV Q8H, PULMICORT NEBS BID, ROBITUSSIN DM 10 ML QID, TUSSIONEX 5ML Q12H PRN, LEVAQUIN 750MG IV DAILY, TESSALON PERLES 200MG DAILY. HIS HOME MEDS OF COLACE, LASIX, METOPROLOL, PROTONIX WERE RESUMED. (2) Bronchopneumonia Status: Acute (3) PRIMO (acute kidney injury) Status: Acute (4) Non-ST elevation [place] (NSTEMI) Status: Acute Plan: CARDIOLOGY CONSULT (5) HTN (hypertension) Status: Acute Qualifiers: Hypertension type: primary hypertension Qualified Code(s): I10 - Essential (primary) hypertension (6) COPD (chronic obstructive pulmonary disease) Status: Chronic Qualifiers: COPD type: unspecified COPD Qualified Code(s): J44.9 - Chronic obstructive pulmonary disease, unspecified (7) Hyperlipidemia Status: Chronic Qualifiers: Hyperlipidemia type: mixed hyperlipidemia Qualified Code(s): E78.2 - Mixed hyperlipidemia (8) Pulmonary fibrosis Status: Chronic
[2023-10-28] MEDS: SOLU-Medrol 40 MG VIAL IVP SCH ×3 (05:30→22:00)
[2023-10-28 05:32] LABS: BASOPHILS % (AUTO) 0.1 % (0.2-1.0); HEMATOCRIT 54.7 % (42.0-54.0); HEMOGLOBIN 17.4 g/dL (13.5-18.0); LYMPHOCYTES # (AUTO) 0.4 X10^3/uL (1.3-2.9); LYMPHOCYTES % (AUTO) 2.7 % (21.0-51.0); MEAN CORPUSCULAR HEMOGLOBIN 30.3 pg (27.0-34.0); MEAN CORPUSCULAR HGB CONC 31.9 g/dL (33.0-35.0); MEAN CORPUSCULAR VOLUME 94.9 fL (80.0-100.0); MONOCYTES # (AUTO) 0.7 x10^3/uL (0.3-0.8); MONOCYTES % (AUTO) 4.9 % (0.0-13.0); NEUTROPHILS # (AUTO) 13.5 x10^3/uL (2.2-4.8); NEUTROPHILS % (AUTO) 92.3 % (42.0-75.0); PLATELET COUNT 92 X10^3/uL (150.0-450.0); RED BLOOD COUNT 5.76 X10^6/uL (4.7-6.0); RED CELL DISTRIBUTION WIDTH 15.9 % (11.6-16.5); WHITE BLOOD COUNT 14.6 X10^3/uL (3.6-10.0)
[2023-10-28 05:58] LABS: ALANINE AMINOTRANSFERASE 40 Units/L (12-78); ALBUMIN 2.4 g/dL (3.4-5.0); ALKALINE PHOSPHATASE 80 Units/L (46-116); ASPARTATE AMINO TRANSFERASE 34 Units/L (15-37); BLOOD UREA NITROGEN 34 mg/dL (7-18); CALCIUM 8.1 mg/dL (8.5-10.1); CARBON DIOXIDE 27.4 mmol/L (21-32); CHLORIDE 105 mmol/L (98-107); COR CA(FOR HYPOALB) 9.4 mg/dL (8.5-10.1); COR NA(FOR HYPERGLY) 140 mmol/L (136-145); GLUCOSE 123 mg/dL (65-99); POTASSIUM 4.5 mmol/L (3.5-5.1); SODIUM 139 mmol/L (136-145); eGFR NON BLACK RACES > 60 (>60)
[2023-10-28 06:03] LABS: PLATELET MORPHOLOGY COMMENT NORMAL (NORMAL)
--- NOTE | 2023-10-28 08:25 | RAD ---
EXAM:AP chestHISTORY:Short of breathCOMPARISON:10/27/2023FINDINGS:Hear t size is similar with sternal wires. Mild interstitial prominence is noted in the bases without evidence for airspace consolidation. There is no definite edema or pleural fluid. Widening of the mediastinum is again noted.IMPRESSION:No interval change or new abnormality. Wide mediastinum is nonspecific but may reflect adenopathy described on previous CT imaging. Interstitial prominence in the left base is consistent with fibrosis.THIS IS AN ELECTRONICALLY VERIFIED FINAL REPORT10/28/2023 8:21 AM - Electronically signed by Vernon Mercado MD
[2023-10-28] MEDS: PROTONIX TAB 40 MG PO SCH ×2 (08:30→20:35)
[2023-10-28] MEDS: NORVASC TAB 5 MG PO SCH ×2 (08:30→20:36)
[2023-10-28] MEDS: COLACE CAP 100 MG PO SCH ×2 (08:30→20:35)
[2023-10-28] MEDS: LOPRESSOR TAB 50 MG PO SCH ×2 (08:30→20:36)
[2023-10-28] MEDS: LEVAQUIN PREMIX IV 750 MG 750 MG/150 ML BAG IV SCH (08:30)
[2023-10-28] MEDS: TESSALON PERLES PO SCH (08:30)
[2023-10-28] MEDS: ASPIRIN PO SCH (08:30)
[2023-10-28] MEDS: PAXLOVID CO-PACK (EUA) PO SCH ×2 (08:30→20:35)
[2023-10-28] MEDS: LASIX PO PRN ×2 (09:06→17:26)
[2023-10-28] MEDS: PULMICORT NEB TX 0.5 MG NEB SCH ×2 (09:30→20:25)
--- NOTE | 2023-10-28 11:14 | PCM.PROG ---
Progress Note Progress Note for Day of Date of Exam: 10/28/23 Subjective Subjective: PATIENT IS A 78 YEAR OLD MALE ADMITTED FOR ACUTE HYPOXEMIC RESPIRATORY FAILURE DUE TO COVID-19, BRONCHOPNEUMONIA, ACUTE KIDNEY INJURY, NON- STEMI. HIS HX INCLUDES: PULMONARY FIBROSIS, COPD, HYPERLIPIDEMIA, GERD. THIS MORNING HE DOES REPORT SOME IMPROVEMENT IN HIS SYMPTOMS AND BREATHING. HE IS UTILIZING OXYGEN VIA NASAL CANNULA AT 4 LPM THIS MORNING. ON EXAMINATION, HEART IS REGULAR IN RATE AND RHYHTM. BILATERAL LUNGS ARE NOTED WITH DIMINISHED LUNG SOUNDS THROUGHOUT. ABDOMEN IS ROUND, SOFT, AND NON-TENDER WITH NORMAL BOWEL SOUNDS NOTED IN ALL QUADRANTS. GOOD RANGE OF MOTION NOTED TO UPPER AND LOWER EXTREMITIES WITH NO EDEMA NOTED. A CHEST XRAY WAS OBTAINED AND REVEALED: Negative for acute cardiopulmonary findings. HE IS CURRENTLY RECEIVING PAXLOVID, SOLU-MEDROL 80MG IV Q8H, PULMICORT NEBS BID, ROBITUSSIN DM 10 ML QID, TUSSIONEX 5ML Q12H PRN, LEVAQUIN 750MG IV DAILY, TESSALON PERLES 200MG DAILY, NORVASC 5MG DAILY. HIS HOME MEDS OF COLACE, LASIX, METOPROLOL, PROTONIX WERE RESUMED. Will decrease Solu-Medrol to 40 mg every 8 HOURS. OTHERWISE, WE WILL CONTINUE WITH CURRENT PLAN OF CARE. WE WILL FOLLOW-UP WITH AM LABS AND CHEST XRAY AND CONTINUE TO MONITOR. TIME SPENT ON CLINICAL ASSESSMENT, REVIEWING LABS AND IMAGING, DECISION MAKING, AND DOCUMENTATION GREATER THAN 45 MINUTES. Past Medical Family Social History Past Med/Fam/Surg Hx: No changes since H&P Allergies: Allergies No Known Drug Allergies Allergy (Unknown, Verified 02/11/21 09:36) Onset Date: 02/11/2021 Review of Systems ROS changes noted: SEE HPI Vital Signs and I&O's Vital Signs: Vital Signs Temperature 97.7 F Temperature 98.1 F Pulse Rate 75 Pulse Rate 70 Pulse Rate 70 Pulse Rate 72 Pulse Rate 59 Pulse Rate 65 Pulse Rate 66 Pulse Rate 61 Pulse Rate 66 Pulse Rate 62 Pulse Rate 67 Pulse Rate 65 Pulse Rate 57 Respiratory Rate 27 Respiratory Rate 22 Respiratory Rate 26 Respiratory Rate 30 Respiratory Rate 31 Respiratory Rate 26 Respiratory Rate 34 Respiratory Rate 17 Respiratory Rate 36 Respiratory Rate 28 Respiratory Rate 39 Respiratory Rate 22 Blood Pressure 133/83 Blood Pressure 170/82 Blood Pressure 170/82 Blood Pressure 170/82 Blood Pressure 181/104 Blood Pressure 161/79 O2 Sat by Pulse Oximetry 90 O2 Sat by Pulse Oximetry 91 O2 Sat by Pulse Oximetry 81 O2 Sat by Pulse Oximetry 89 O2 Sat by Pulse Oximetry 93 O2 Sat by Pulse Oximetry 91 O2 Sat by Pulse Oximetry 93 O2 Sat by Pulse Oximetry 92 O2 Sat by Pulse Oximetry 93 O2 Sat by Pulse Oximetry 91 O2 Sat by Pulse Oximetry 92 O2 Sat by Pulse Oximetry 93 O2 Sat by Pulse Oximetry 92 Intake and Output: Intake & Output 10/25/23 10/26/23 10/27/23 10/28/23 23:59 23:59 23:59 23:59 Intake Total 910 / 910 820 / 820 1140 / 1140 250 / 250 Output Total 1400 / 1400 1150 / 1150 400 / 400 Balance -490 / -490 -330 / -330 1140 / 1140 -150 / -150 Physical Exam Oriented: Normal Eyes: Normal Ear: Normal Nose: Normal Throat: Normal Respiratory: Generalized and Diminished Cardiovascular: Normal : Normal Auscultation: Bowel Sounds: Normal Tenderness: Normal Skin: Normal Musculoskeletal: Normal Psychiatric: Normal Mood Description: Calm Affect: Normal Speech Pattern: Clear and Appropriate Laboratory and Diagnostics 10/28/23 04:00 10/28/23 04:00 Labs: 10/22/23 18:34 Blood Blood Culture - Final 10/22/23 18:30 Blood Blood Culture - Final Laboratory WBC 14.6 X10^3/uL (3.6-10.0) H 10/28/23 04:00 RBC 5.76 X10^6/uL (4.7-6.0) 10/28/23 04:00 Hgb 17.4 g/dL (13.5-18.0) 10/28/23 04:00 Hct 54.7 % (42.0-54.0) H 10/28/23 04:00 MCV 94.9 fL (80.0-100.0) 10/28/23 04:00 MCH 30.3 pg (27.0-34.0) 10/28/23 04:00 MCHC 31.9 g/dL (33.0-35.0) L 10/28/23 04:00 RDW 15.9 % (11.6-16.5) 10/28/23 04:00 Plt Count 92 X10^3/uL (150.0-450.0) L 10/28/23 04:00 Plt Count Comment Decreased (ADEQUATE) 10/28/23 04:00 MPV 9.0 fL (7.4-11.0) 10/28/23 04:00 Neut % (Auto) 92.3 % (42.0-75.0) H 10/28/23 04:00 Lymph % (Auto) 2.7 % (21.0-51.0) L 10/28/23 04:00 [place] % (Auto) 4.9 % (0.0-13.0) 10/28/23 04:00 Eos % (Auto) 0.0 % (0.9-2.9) L 10/28/23 04:00 Baso % (Auto) 0.1 % (0.2-1.0) L 10/28/23 04:00 Neut # (Auto) 13.5 x10^3/uL (2.2-4.8) H 10/28/23 04:00 Lymph # (Auto) 0.4 X10^3/uL (1.3-2.9) L 10/28/23 04:00 [place] # (Auto) 0.7 x10^3/uL (0.3-0.8) 10/28/23 04:00 Eos # (Auto) 0.0 x10^3/uL (0.0-0.2) 10/28/23 04:00 Baso # (Auto) 0.0 X10^3/uL (0.0-0.1) 10/28/23 04:00 Absolute Nucleated RBC 0.1 /100WBC 10/28/23 04:00 Total Counted 100 10/28/23 04:00 Neutrophils % (Manual) 91 % (39-76) H 10/28/23 04:00 Band Neutrophils % 1 % (0-10) 10/25/23 04:42 Lymphocytes % (Manual) 4 % (13-43) L 10/28/23 04:00 Monocytes % (Manual) 5 % (4-9) 10/28/23 04:00 Giant Platelets Few 10/22/23 18:30 Plt Morphology Comment Normal (NORMAL) 10/28/23 04:00 RBC Morphology Normal (NORMAL) 10/28/23 04:00 Anisocytosis Slight A 10/22/23 18:30 Tear Drop Cells Present 10/26/23 04:17 PT 16.4 SECONDS (11.8-14.3) 10/22/23 18:50 INR Target Range - 10/22/23 18:50 INR 1.35 (0.8-1.3) H 10/22/23 18:50 APTT 35.6 SECONDS (22.9-36.5) 10/22/23 18:50 PTT Comment - 10/22/23 18:50 D-Dimer 10.74 ug/ml (0.0-0.57) H 10/23/23 09:03 Sample Site L rad 10/27/23 05:55 ABG pH 7.480 (7.35-7.45) H 10/27/23 05:55 ABG pCO2 38.0 mmHg (35.0-45.0) 10/27/23 05:55 ABG pO2 42.0 mmHg (80.0-100.0) L* 10/27/23 05:55 ABG HCO3 28.3 mmol/L (22-26) H 10/27/23 05:55 ABG O2 Saturation 82.0 % (90-100) L* 10/27/23 05:55 ABG Base Excess 4.6 mmol/L (-2.0-2.0) H 10/27/23 05:55 Ganesh Test Pos 10/27/23 05:55 A-a Gradient 153.0 mmHg 10/27/23 05:55 FiO2 34.0 10/27/23 05:55 Blood Gas Comments Pt makeda well 10/27/23 05:55 Sodium 139 mmol/L (136-145) 10/28/23 04:00 Corrected Sodium 140 mmol/L (136-145) 10/28/23 04:00 Potassium 4.5 mmol/L (3.5-5.1) 10/28/23 04:00 Chloride 105 mmol/L (98-107) 10/28/23 04:00 Carbon Dioxide 27.4 mmol/L (21-32) 10/28/23 04:00 BUN 34 mg/dL (7-18) H 10/28/23 04:00 Creatinine 1.00 mg/dL (0.70-1.30) 10/28/23 04:00 Est GFR (MDRD) Af Amer > 60 (>60) 10/28/23 04:00 Est GFR (MDRD) Non-Af > 60 (>60) 10/28/23 04:00 Glucose 123 mg/dL (65-99) H 10/28/23 04:00 Lactic Acid 1.7 mmol/L (0.4-2.0) 10/23/23 08:15 Calcium 8.1 mg/dL (8.5-10.1) L 10/28/23 04:00 Corrected Calcium 9.4 mg/dL (8.5-10.1) 10/28/23 04:00 Magnesium 2.3 mg/dL (2.0-2.9) 10/23/23 04:11 Total Bilirubin 0.90 mg/dL (0.2-1.0) 10/28/23 04:00 AST 34 Units/L (15-37) 10/28/23 04:00 ALT 40 Units/L (12-78) 10/28/23 04:00 Alkaline Phosphatase 80 Units/L (46-116) 10/28/23 04:00 Creatine Kinase 55 Units/L (39-308) 10/23/23 00:20 Troponin I High Sens 834.7 ng/L (4.0-60.0) H* 10/23/23 06:50 C-Reactive Protein 2.40 mg/L (0-3.0) 10/28/23 04:00 B-Natriuretic Peptide 379 pg/mL (0-79) H 10/24/23 05:02 Total Protein 6.0 g/dL (6.4-8.2) L 10/28/23 04:00 Albumin 2.4 g/dL (3.4-5.0) L 10/28/23 04:00 Globulin 3.6 g/dL (2.5-4.5) 10/28/23 04:00 Albumin/Globulin Ratio 0.7 Ratio (1.1-2.1) L 10/28/23 04:00 SARS-CoV-2 (PCR) Positive (NEGATIVE) A 10/22/23 20:47 Influenza Type A (PCR) Negative (NEGATIVE) 10/22/23 20:47 Influenza Type B (PCR) Negative (NEGATIVE) 10/22/23 20:47 RSV (PCR) Negative (NEGATIVE) 10/22/23 20:47 Plan (1) Acute hypoxemic respiratory failure due to COVID-19: Status: Acute Plan: SUPPLEMENTAL OXYGEN, PAXLOVID, SOLU-MEDROL 80MG IV Q8H, PULMICORT NEBS BID, ROBITUSSIN DM 10 ML QID, TUSSIONEX 5ML Q12H PRN, LEVAQUIN 750MG IV DAILY, TESSALON PERLES 200MG DAILY. HIS HOME MEDS OF COLACE, LASIX, METOPROLOL, PROTONIX WERE RESUMED. (2) Bronchopneumonia: Status: Acute (3) PRIMO (acute kidney injury): Status: Acute (4) Non-ST elevation [place] (NSTEMI): Status: Acute Plan: CARDIOLOGY CONSULT (5) HTN (hypertension): Status: Acute Qualifiers: Hypertension type: primary hypertension Qualified Code(s): I10 - Essential (primary) hypertension (6) COPD (chronic obstructive pulmonary disease): Status: Chronic Qualifiers: COPD type: unspecified COPD Qualified Code(s): J44.9 - Chronic obstructive pulmonary disease, unspecified (7) Hyperlipidemia: Status: Chronic Qualifiers: Hyperlipidemia type: mixed hyperlipidemia Qualified Code(s): E78.2 - Mixed hyperlipidemia (8) Pulmonary fibrosis: Status: Chronic
[2023-10-29 05:19] LABS: BASOPHILS % (AUTO) 0.1 % (0.2-1.0); HEMOGLOBIN 17.7 g/dL (13.5-18.0); LYMPHOCYTES # (AUTO) 0.5 X10^3/uL (1.3-2.9); LYMPHOCYTES % (AUTO) 3.1 % (21.0-51.0); MEAN CORPUSCULAR HEMOGLOBIN 30.6 pg (27.0-34.0); MEAN CORPUSCULAR HGB CONC 32.1 g/dL (33.0-35.0); MEAN CORPUSCULAR VOLUME 95.3 fL (80.0-100.0); MEAN PLATELET VOLUME 9.1 fL (7.4-11.0); MONOCYTES # (AUTO) 0.7 x10^3/uL (0.3-0.8); MONOCYTES % (AUTO) 4.5 % (0.0-13.0); NEUTROPHILS # (AUTO) 13.6 x10^3/uL (2.2-4.8); NEUTROPHILS % (AUTO) 92.3 % (42.0-75.0); PLATELET COUNT 106 X10^3/uL (150.0-450.0); RED BLOOD COUNT 5.78 X10^6/uL (4.7-6.0); RED CELL DISTRIBUTION WIDTH 15.9 % (11.6-16.5); WHITE BLOOD COUNT 14.7 X10^3/uL (3.6-10.0)
[2023-10-29 05:34] LABS: ALANINE AMINOTRANSFERASE 34 Units/L (12-78); ALBUMIN 2.4 g/dL (3.4-5.0); ALKALINE PHOSPHATASE 77 Units/L (46-116); ASPARTATE AMINO TRANSFERASE 29 Units/L (15-37); BLOOD UREA NITROGEN 36 mg/dL (7-18); CALCIUM 7.8 mg/dL (8.5-10.1); CARBON DIOXIDE 28.6 mmol/L (21-32); CHLORIDE 104 mmol/L (98-107); COR CA(FOR HYPOALB) 9.1 mg/dL (8.5-10.1); COR NA(FOR HYPERGLY) 140 mmol/L (136-145); CREATININE 1.07 mg/dL (0.70-1.30); GLUCOSE 121 mg/dL (65-99); POTASSIUM 4.2 mmol/L (3.5-5.1); SODIUM 139 mmol/L (136-145); TOTAL PROTEIN 5.9 g/dL (6.4-8.2); eGFR NON BLACK RACES > 60 (>60)
[2023-10-29] MEDS: SOLU-Medrol 40 MG VIAL IVP SCH ×3 (05:40→21:15)
[2023-10-29 05:50] LABS: PLATELET MORPHOLOGY COMMENT NORMAL (NORMAL); SMUDGE CELLS SLIGHT
--- NOTE | 2023-10-29 07:51 | RAD ---
EXAM:AP chestHISTORY:Short of breathCOMPARISON:10/28/2023FINDINGS:Ther e is no change in appearance of heart or lungs. Stable interstitial density left base as before with no developing consolidation or pleural fluid. Significant widening of the superior mediastinum is again noted.IMPRESSION:No change. The mediastinal widening is of significant degree; only mild pretracheal adenopathy was described on chest CT January,. A follow-up/comparison CT may be helpful to further define this finding.THIS IS AN ELECTRONICALLY VERIFIED FINAL REPORT10/29/2023 7:48 AM - Electronically signed by Vernon Mercado MD
[2023-10-29] MEDS: LASIX PO PRN ×2 (08:13→16:50)
[2023-10-29] MEDS: PROTONIX TAB 40 MG PO SCH ×2 (08:13→21:15)
[2023-10-29] MEDS: LOPRESSOR TAB 50 MG PO SCH ×2 (08:13→21:15)
[2023-10-29] MEDS: LEVAQUIN PREMIX IV 750 MG 750 MG/150 ML BAG IV SCH (08:13)
[2023-10-29] MEDS: COLACE CAP 100 MG PO SCH ×2 (08:13→21:15)
[2023-10-29] MEDS: ASPIRIN PO SCH (08:13)
[2023-10-29] MEDS: TESSALON PERLES PO SCH (08:13)
[2023-10-29] MEDS: NORVASC TAB 5 MG PO SCH ×2 (08:13→21:15)
[2023-10-29] MEDS: PULMICORT NEB TX 0.5 MG NEB SCH ×2 (09:37→20:10)
--- NOTE | 2023-10-29 10:09 | PCM.PROG ---
Progress Note Progress Note for Day of Date of Exam: 10/29/23 Subjective Subjective: PATIENT IS A 78 YEAR OLD MALE ADMITTED FOR ACUTE HYPOXEMIC RESPIRATORY FAILURE DUE TO COVID-19, BRONCHOPNEUMONIA, ACUTE KIDNEY INJURY, NON- STEMI. HIS HX INCLUDES: PULMONARY FIBROSIS, COPD, HYPERLIPIDEMIA, GERD. THIS MORNING HE CONTINUES TO IMPROVE. HE IS UTILIZING OXYGEN VIA NASAL CANNULA AT 4 LPM THIS MORNING. ON EXAMINATION, HEART IS REGULAR IN RATE AND RHYHTM. BILATERAL LUNGS ARE NOTED WITH DIMINISHED LUNG SOUNDS THROUGHOUT. ABDOMEN IS ROUND, SOFT, AND NON-TENDER WITH NORMAL BOWEL SOUNDS NOTED IN ALL QUADRANTS. A CHEST XRAY WAS OBTAINED AND REVEALED: No change. The mediastinal widening is of significant degree; only mild pretracheal adenopathy was described on chest CT January,. HE IS CURRENTLY RECEIVING PAXLOVID, SOLU-MEDROL 40MG IV Q8H, PULMICORT NEBS BID, ROBITUSSIN DM 10 ML QID, TUSSIONEX 5ML Q12H PRN, LEVAQUIN 750MG IV DAILY, TESSALON PERLES 200MG DAILY, NORVASC 5MG DAILY. HIS HOME MEDS OF COLACE, LASIX, METOPROLOL, PROTONIX WERE RESUMED. OTHERWISE, WE WILL CONTINUE WITH CURRENT PLAN OF CARE. WE WILL FOLLOW-UP WITH AM LABS AND CHEST XRAY AND CONTINUE TO MONITOR. TIME SPENT ON CLINICAL ASSESSMENT, REVIEWING LABS AND IMAGING, DECISION MAKING, AND DOCUMENTATION GREATER THAN 45 MINUTES. Past Medical Family Social History Past Med/Fam/Surg Hx: No changes since H&P Allergies: Allergies No Known Drug Allergies Allergy (Unknown, Verified 02/11/21 09:36) Onset Date: 02/11/2021 Review of Systems ROS changes noted: SEE HPI Vital Signs and I&O's Vital Signs: Vital Signs Temperature 98 F Temperature 97.6 F Pulse Rate 66 Pulse Rate 66 Pulse Rate 59 Pulse Rate 74 Pulse Rate 83 Pulse Rate 60 Pulse Rate 60 Pulse Rate 63 Pulse Rate 63 Pulse Rate 66 Pulse Rate 60 Pulse Rate 64 Pulse Rate 60 Pulse Rate 64 Pulse Rate 59 Pulse Rate 81 Pulse Rate 78 Pulse Rate 57 Respiratory Rate 45 Respiratory Rate 28 Respiratory Rate 32 Respiratory Rate 35 Respiratory Rate 38 Respiratory Rate 25 Respiratory Rate 25 Respiratory Rate 32 Respiratory Rate 32 Respiratory Rate 30 Respiratory Rate 25 Respiratory Rate 27 Respiratory Rate 25 Respiratory Rate 26 Respiratory Rate 24 Respiratory Rate 34 Respiratory Rate 32 Respiratory Rate 30 Blood Pressure 128/80 Blood Pressure 136/65 Blood Pressure 136/65 Blood Pressure 138/78 Blood Pressure 138/78 Blood Pressure 138/78 Blood Pressure 213/81 Blood Pressure 213/81 Blood Pressure 159/76 Blood Pressure 159/76 Blood Pressure 143/70 Blood Pressure 143/70 Blood Pressure 143/70 Blood Pressure 147/73 Blood Pressure 147/73 Blood Pressure 173/79 Blood Pressure 173/79 Blood Pressure 149/72 Blood Pressure 149/72 Blood Pressure 149/72 Blood Pressure 149/72 Blood Pressure 149/72 O2 Sat by Pulse Oximetry 87 O2 Sat by Pulse Oximetry 91 O2 Sat by Pulse Oximetry 91 O2 Sat by Pulse Oximetry 89 O2 Sat by Pulse Oximetry 90 O2 Sat by Pulse Oximetry 88 O2 Sat by Pulse Oximetry 92 O2 Sat by Pulse Oximetry 92 O2 Sat by Pulse Oximetry 89 O2 Sat by Pulse Oximetry 89 O2 Sat by Pulse Oximetry 90 O2 Sat by Pulse Oximetry 93 O2 Sat by Pulse Oximetry 92 O2 Sat by Pulse Oximetry 93 O2 Sat by Pulse Oximetry 92 O2 Sat by Pulse Oximetry 92 O2 Sat by Pulse Oximetry 84 O2 Sat by Pulse Oximetry 87 O2 Sat by Pulse Oximetry 91 Intake and Output: Intake & Output 10/26/23 10/27/23 10/28/23 10/29/23 23:59 23:59 23:59 23:59 Intake Total 820 / 820 1140 / 1140 1050 / 1050 100 / 100 Output Total 1150 / 1150 1525 / 1525 275 / 275 Balance -330 / -330 1140 / 1140 -475 / -475 -175 / -175 Physical Exam Oriented: Normal Eyes: Normal Ear: Normal Nose: Normal Throat: Normal Respiratory: Generalized and Diminished Cardiovascular: Normal : Normal Auscultation: Bowel Sounds: Normal Tenderness: Normal Skin: Normal Musculoskeletal: Normal Psychiatric: Normal Mood Description: Calm Affect: Normal Speech Pattern: Clear and Appropriate Laboratory and Diagnostics 10/29/23 04:10 10/29/23 04:10 Labs: 10/22/23 18:34 Blood Blood Culture - Final 10/22/23 18:30 Blood Blood Culture - Final Laboratory WBC 14.7 X10^3/uL (3.6-10.0) H 10/29/23 04:10 RBC 5.78 X10^6/uL (4.7-6.0) 10/29/23 04:10 Hgb 17.7 g/dL (13.5-18.0) 10/29/23 04:10 Hct 55.0 % (42.0-54.0) H 10/29/23 04:10 MCV 95.3 fL (80.0-100.0) 10/29/23 04:10 MCH 30.6 pg (27.0-34.0) 10/29/23 04:10 MCHC 32.1 g/dL (33.0-35.0) L 10/29/23 04:10 RDW 15.9 % (11.6-16.5) 10/29/23 04:10 Plt Count 106 X10^3/uL (150.0-450.0) L 10/29/23 04:10 Plt Count Comment Decreased (ADEQUATE) 10/29/23 04:10 MPV 9.1 fL (7.4-11.0) 10/29/23 04:10 Neut % (Auto) 92.3 % (42.0-75.0) H 10/29/23 04:10 Lymph % (Auto) 3.1 % (21.0-51.0) L 10/29/23 04:10 [place] % (Auto) 4.5 % (0.0-13.0) 10/29/23 04:10 Eos % (Auto) 0.0 % (0.9-2.9) L 10/29/23 04:10 Baso % (Auto) 0.1 % (0.2-1.0) L 10/29/23 04:10 Neut # (Auto) 13.6 x10^3/uL (2.2-4.8) H 10/29/23 04:10 Lymph # (Auto) 0.5 X10^3/uL (1.3-2.9) L 10/29/23 04:10 [place] # (Auto) 0.7 x10^3/uL (0.3-0.8) 10/29/23 04:10 Eos # (Auto) 0.0 x10^3/uL (0.0-0.2) 10/29/23 04:10 Baso # (Auto) 0.0 X10^3/uL (0.0-0.1) 10/29/23 04:10 Absolute Nucleated RBC 0.2 /100WBC 10/29/23 04:10 Total Counted 100 10/29/23 04:10 Neutrophils % (Manual) 92 % (39-76) H 10/29/23 04:10 Band Neutrophils % 1 % (0-10) 10/25/23 04:42 Lymphocytes % (Manual) 5 % (13-43) L 10/29/23 04:10 Monocytes % (Manual) 3 % (4-9) L 10/29/23 04:10 Smudge Cells Slight A 10/29/23 04:10 Giant Platelets Few 10/22/23 18:30 Plt Morphology Comment Normal (NORMAL) 10/29/23 04:10 RBC Morphology Normal (NORMAL) 10/29/23 04:10 Anisocytosis Slight A 10/22/23 18:30 Tear Drop Cells Present 10/26/23 04:17 PT 16.4 SECONDS (11.8-14.3) 10/22/23 18:50 INR Target Range - 10/22/23 18:50 INR 1.35 (0.8-1.3) H 10/22/23 18:50 APTT 35.6 SECONDS (22.9-36.5) 10/22/23 18:50 PTT Comment - 10/22/23 18:50 D-Dimer 10.74 ug/ml (0.0-0.57) H 10/23/23 09:03 Sample Site L rad 10/27/23 05:55 ABG pH 7.480 (7.35-7.45) H 10/27/23 05:55 ABG pCO2 38.0 mmHg (35.0-45.0) 10/27/23 05:55 ABG pO2 42.0 mmHg (80.0-100.0) L* 10/27/23 05:55 ABG HCO3 28.3 mmol/L (22-26) H 10/27/23 05:55 ABG O2 Saturation 82.0 % (90-100) L* 10/27/23 05:55 ABG Base Excess 4.6 mmol/L (-2.0-2.0) H 10/27/23 05:55 Ganesh Test Pos 10/27/23 05:55 A-a Gradient 153.0 mmHg 10/27/23 05:55 FiO2 34.0 10/27/23 05:55 Blood Gas Comments Pt makeda well 10/27/23 05:55 Sodium 139 mmol/L (136-145) 10/29/23 04:10 Corrected Sodium 140 mmol/L (136-145) 10/29/23 04:10 Potassium 4.2 mmol/L (3.5-5.1) 10/29/23 04:10 Chloride 104 mmol/L (98-107) 10/29/23 04:10 Carbon Dioxide 28.6 mmol/L (21-32) 10/29/23 04:10 BUN 36 mg/dL (7-18) H 10/29/23 04:10 Creatinine 1.07 mg/dL (0.70-1.30) 10/29/23 04:10 Est GFR (MDRD) Af Amer > 60 (>60) 10/29/23 04:10 Est GFR (MDRD) Non-Af > 60 (>60) 10/29/23 04:10 Glucose 121 mg/dL (65-99) H 10/29/23 04:10 Lactic Acid 1.7 mmol/L (0.4-2.0) 10/23/23 08:15 Calcium 7.8 mg/dL (8.5-10.1) L 10/29/23 04:10 Corrected Calcium 9.1 mg/dL (8.5-10.1) 10/29/23 04:10 Magnesium 2.3 mg/dL (2.0-2.9) 10/23/23 04:11 Total Bilirubin 1.10 mg/dL (0.2-1.0) H 10/29/23 04:10 AST 29 Units/L (15-37) 10/29/23 04:10 ALT 34 Units/L (12-78) 10/29/23 04:10 Alkaline Phosphatase 77 Units/L (46-116) 10/29/23 04:10 Creatine Kinase 55 Units/L (39-308) 10/23/23 00:20 Troponin I High Sens 834.7 ng/L (4.0-60.0) H* 10/23/23 06:50 C-Reactive Protein 2.40 mg/L (0-3.0) 10/28/23 04:00 B-Natriuretic Peptide 379 pg/mL (0-79) H 10/24/23 05:02 Total Protein 5.9 g/dL (6.4-8.2) L 10/29/23 04:10 Albumin 2.4 g/dL (3.4-5.0) L 10/29/23 04:10 Globulin 3.5 g/dL (2.5-4.5) 10/29/23 04:10 Albumin/Globulin Ratio 0.7 Ratio (1.1-2.1) L 10/29/23 04:10 SARS-CoV-2 (PCR) Positive (NEGATIVE) A 10/22/23 20:47 Influenza Type A (PCR) Negative (NEGATIVE) 10/22/23 20:47 Influenza Type B (PCR) Negative (NEGATIVE) 10/22/23 20:47 RSV (PCR) Negative (NEGATIVE) 10/22/23 20:47 Plan (1) Acute hypoxemic respiratory failure due to COVID-19: Status: Acute Plan: SUPPLEMENTAL OXYGEN, PAXLOVID, SOLU-MEDROL 40MG IV Q8H, PULMICORT NEBS BID, ROBITUSSIN DM 10 ML QID, TUSSIONEX 5ML Q12H PRN, LEVAQUIN 750MG IV DAILY, TESSALON PERLES 200MG DAILY. HIS HOME MEDS OF COLACE, LASIX, METOPROLOL, PROTONIX WERE RESUMED. (2) Bronchopneumonia: Status: Acute (3) PRIMO (acute kidney injury): Status: Acute (4) Non-ST elevation [place] (NSTEMI): Status: Acute Plan: CARDIOLOGY CONSULT (5) HTN (hypertension): Status: Acute Qualifiers: Hypertension type: primary hypertension Qualified Code(s): I10 - Essential (primary) hypertension (6) COPD (chronic obstructive pulmonary disease): Status: Chronic Qualifiers: COPD type: unspecified COPD Qualified Code(s): J44.9 - Chronic obstructive pulmonary disease, unspecified (7) Hyperlipidemia: Status: Chronic Qualifiers: Hyperlipidemia type: mixed hyperlipidemia Qualified Code(s): E78.2 - Mixed hyperlipidemia (8) Pulmonary fibrosis: Status: Chronic
[2023-10-29] MEDS ORDERED: BUTT CREAM (COMPOUND) TOP PRN (16:37)
[2023-10-29] MEDS ORDERED: BUTT CREAM (COMPOUND) ONE (16:38)
[2023-10-30 04:29] LABS: BASOPHILS % (AUTO) 0.2 % (0.2-1.0); EOSINOPHILS % (AUTO) 0.1 % (0.9-2.9); HEMATOCRIT 55.8 % (42.0-54.0); HEMOGLOBIN 17.8 g/dL (13.5-18.0); LYMPHOCYTES # (AUTO) 0.2 X10^3/uL (1.3-2.9); LYMPHOCYTES % (AUTO) 1.5 % (21.0-51.0); MEAN CORPUSCULAR HEMOGLOBIN 30.3 pg (27.0-34.0); MEAN CORPUSCULAR HGB CONC 31.8 g/dL (33.0-35.0); MEAN CORPUSCULAR VOLUME 95.2 fL (80.0-100.0); MEAN PLATELET VOLUME 8.6 fL (7.4-11.0); MONOCYTES # (AUTO) 0.7 x10^3/uL (0.3-0.8); MONOCYTES % (AUTO) 4.6 % (0.0-13.0); NEUTROPHILS # (AUTO) 15.2 x10^3/uL (2.2-4.8); NEUTROPHILS % (AUTO) 93.6 % (42.0-75.0); PLATELET COUNT 102 X10^3/uL (150.0-450.0); RED BLOOD COUNT 5.86 X10^6/uL (4.7-6.0); RED CELL DISTRIBUTION WIDTH 16.1 % (11.6-16.5); WHITE BLOOD COUNT 16.2 X10^3/uL (3.6-10.0)
[2023-10-30 04:37] LABS: ALANINE AMINOTRANSFERASE 32 Units/L (12-78); ALBUMIN 2.4 g/dL (3.4-5.0); ALKALINE PHOSPHATASE 77 Units/L (46-116); ASPARTATE AMINO TRANSFERASE 27 Units/L (15-37); BLOOD UREA NITROGEN 36 mg/dL (7-18); CALCIUM 7.9 mg/dL (8.5-10.1); CHLORIDE 105 mmol/L (98-107); COR CA(FOR HYPOALB) 9.2 mg/dL (8.5-10.1); COR NA(FOR HYPERGLY) 140 mmol/L (136-145); GLUCOSE 134 mg/dL (65-99); POTASSIUM 4.3 mmol/L (3.5-5.1); SODIUM 139 mmol/L (136-145); TOTAL PROTEIN 5.6 g/dL (6.4-8.2); eGFR NON BLACK RACES > 60 (>60)
[2023-10-30 04:42] LABS: PLATELET MORPHOLOGY COMMENT NORMAL (NORMAL); SMUDGE CELLS SLIGHT
[2023-10-30] MEDS: SOLU-Medrol 40 MG VIAL IVP SCH ×3 (05:11→21:01)
--- NOTE | 2023-10-30 07:28 | RAD ---
EXAM:CHEST, 1 VIEWHISTORY:acute respiratory failure, acute hypoxemic;COMPARISON:10/29/2023.TECHNIQUE: [email or web address] Status post median sternotomy. The cardiac silhouette appears stable. Similar-appearing prominent superior mediastinum. Similar-appearing left mid to lower lung airspace and interstitial opacities. Right upper lobe airspace opacity appears similar. Right lower lobe interstitial opacities appears similar. No definite pleural effusion or pneumothorax.IMPRESSION:No significant change compared to prior radiograph. Similar-appearing widening of the mediastinum. CT has been ordered for same day. Bilateral airspace and interstitial opacities may represent pneumonia in the appropriate clinical setting. Recommend follow-up radiographs to document resolution or same-day CT for further evaluation.THIS IS AN ELECTRONICALLY VERIFIED FINAL REPORT10/30/2023 7:25 AM - Electronically signed by Adelfo Mckeon MD
[2023-10-30] MEDS: PULMICORT NEB TX 0.5 MG NEB SCH ×2 (08:24→20:45)
--- NOTE | 2023-10-30 08:39 | CT ---
EXAM:CHEST WITH CONTRASTHISTORY:Hypoxia, shortness of breath, respiratory failure, abnormal chest x-rayTECHNIQUE:Axial postcontrast images with coronal and sagittal reformats. Dose reduction procedures were used with mA/kv adjusted for body size.COMPARISON:02/13/2023FINDINGS:[place] of the mediastinum demonstrated extensive enlarged retrocaval pretracheal lymphadenopathy and multiple prominent but nonenlarged AP window lymph nodes all increased when compared with prior examination. This accounts for widening of the upper mediastinum on chest x-ray. No definite hilar adenopathy is identified. No significant aortic abnormalities identified. No pleural effusions are identified. No chest wall or axillary abnormalities identified. Those portions of the upper abdominal organs visualized appeared within normal limits examination of the lung tolbert demonstrated a lobular mass in the right lung apex measuring 3 cm by 2.7 cm by 3.7 cm. This is in the area where there was previously noted to be (02/01/2023) a 6 mm nodule. This should be considered rapidly progressive primary lung neoplasm until proven otherwise. Mediastinal lymphadenopathy is likely metastatic. Peripheral left upper lobe and left lower lobe infiltrates are present suggestive of pneumonia. There is also some infiltrate in the right upper lobe abutting the minor fissure. Multifocal pneumonia is likely. No pleural effusions are identified. Bony thorax is unremarkable.IMPRESSION:3 cm x 2.7 cm x 3.7 cm right apical lung mass which should be considered rapidly progressive malignant pulmonary neoplasm until proven otherwiseMetastatic mediastinal adenopathy as described accounting for the widening of the upper mediastinumPeripheral right upper lobe, left upper lobe and left lower lobe infiltrates suggestive of multifocal pneumonia which could be bacterial, viral, or atypical viral in origin.THIS IS AN ELECTRONICALLY VERIFIED FINAL REPORT10/30/2023 8:36 AM - Electronically signed by Alfred Davis MD
[2023-10-30] MEDS: LEVAQUIN PREMIX IV 750 MG 750 MG/150 ML BAG IV SCH (08:56)
[2023-10-30] MEDS: NORVASC TAB 5 MG PO SCH ×2 (08:56→20:20)
[2023-10-30] MEDS: PROTONIX TAB 40 MG PO SCH ×2 (08:56→20:20)
[2023-10-30] MEDS: ASPIRIN PO SCH (08:56)
[2023-10-30] MEDS: LOPRESSOR TAB 50 MG PO SCH ×2 (08:56→20:20)
[2023-10-30] MEDS: TESSALON PERLES PO SCH (08:56)
[2023-10-30] MEDS: COLACE CAP 100 MG PO SCH ×2 (08:56→20:20)
[2023-10-30] MEDS: LASIX PO PRN ×2 (08:58→20:20)
[2023-10-30 09:32] LABS: ABG BASE EXCESS 4.9 mmol/L (-2.0-2.0); ABG HCO3 29.2 mmol/L (22-26)
[2023-10-30 09:33] LABS: ABG ALLEN TEST POS
--- NOTE | 2023-10-30 09:57 | PCM.PROG ---
Progress Note - Progress Note for Day of Date of Exam: 10/30/23 - Subjective Subjective: WAS ADMITTED ON 10/22/23 FOR TREATMENT OF ACUTE HYPOXEMIC RESPIRATORY FAILURE, COVID-19, BRONCHOPNEUMONIA, ACUTE KIDNEY INJURY, NON-STEMI. HE IS CURRENTLY INPATIENT STATUS. HIS HX INCLUDES: PULMONARY FIBROSIS, COPD, HYPERLIPIDEMIA, GERD. TODAY, HE IS ALERT AND ORIENTED, SITTING UP IN BED ON MORNING ROUNDS. HE REPORTS SOME IMPROVEMENT IN COUGH AND SHORTNESS OF BREATH THIS MORNING. HE REPORTS THAT SHORTNESS OF BREATH IS WORSE ON EXTERTION. HE DENIES CHEST PAIN OR OTHER SYMPTOMS. HE IS UTILIZING OXYGEN VIA THE OXYMASK AT 4-5 LPM THIS MORNING. HIS OXYGEN SATURATIONS HAVE BEEN IN THE 80s OVER THE WEEKEND AND HAVENT GOTTEN OVER 90% MUCH AT ALL. ON EXAMINATION, HEART IS REGULAR IN RATE AND RHYHTM. BILATERAL LUNGS ARE NOTED WITH DIMINISHED LUNG SOUNDS THROUGHOUT. ABDOMEN IS ROUND, SOFT, AND NON-TENDER WITH NORMAL BOWEL SOUNDS NOTED IN ALL QUADRANTS. GOOD RANGE OF MOTION NOTED TO UPPER AND LOWER EXTREMITIES WITH NO EDEMA NOTED. HIS VITALS THIS MORNING ARE: 97.9-85-28-88%-117/66. LABS WERE OBTAINED. WBC 16.2, RBC 5.86, HGB 17.8, HCT 55.8, PLT COUNT 102, SODIUM 139, POTASSIUM 4.3, CHLORIDE 105, BUN 36, CREATININE 1.00, GLUCOSE 134, CALCIUM 7.9, TOTAL BILI 1.10, AST 27, ALT 32, ALK PHOS 77, BNP 243, TOTAL PROTEIN 5.6, ALBUMIN 2.4. BLOOD CULTURES ARE PENDING. ABG REVEALED: PH 7.460, PC02 41, P02 46, HC03 29.2, 02 SAT 84, BASE EXCESS 4.9, FI02 47. A CHEST CT WITH CONTRAST WAS OBTAINED THIS MORNING AND REVEALED: 3 cm x 2.7 cm x 3.7 cm right apical lung mass which should be considered rapidly progressive malignant pulmonary neoplasm until proven otherwise. Metastatic mediastinal adenopathy as described accounting for the widening of the upper mediastinum. Peripheral right upper lobe, left upper lobe and left lower lobe infiltrates suggestive of multifocal pneumonia which could be bacterial, viral, or atypical viral in origin. HE IS CURRENTLY RECEIVING SOLU-MEDROL 40MG IV Q8H, PULMICORT NEBS BID, ROBITUSSIN DM 10 ML QID, TUSSIONEX 5ML Q12H PRN, LEVAQUIN 750MG IV DAILY, TESSALON PERLES 200MG DAILY, NORVASC 5MG DAILY. HIS HOME MEDS OF COLACE, LASIX, METOPROLOL, PROTONIX WERE RESUMED. HE HAS RECEIVED SOME THERAPEUTIC PHLEBOTOMY SINCE HE HAS BEEN HERE. AND HAS ALSO BEEN FOLLOWED BY CARDIOLOGY. DUE TO TODAYS CT FINDINGS, WE WILL CONSULT WITH PULMONOLOGY VIA [facility]. OTHERWISE, WE WILL CONTINUE WITH CURRENT PLAN OF CARE. WE WILL FOLLOW-UP WITH AM LABS AND CHEST XRAY AND CONTINUE TO MONITOR. TIME SPENT ON CLINICAL ASSESSMENT, REVIEWING LABS AND IMAGING, DECISION MAKING, AND DOCUMENTATION GREATER THAN 45 MINUTES. - Past Medical Family Social History Past Med/Fam/Surg Hx: No changes since H&P Allergies: Allergies No Known Drug Allergies Allergy (Unknown, Verified 02/11/21 09:36) Onset Date: 02/11/2021 - Review of Systems ROS: No change since H&P - Vital Signs and I&O's Vital Signs: Vital Signs Temperature 97.9 F Temperature 98.0 F Pulse Rate 69 Pulse Rate 69 Pulse Rate 76 Pulse Rate 81 Pulse Rate 85 Pulse Rate 62 Pulse Rate 67 Pulse Rate 64 Pulse Rate 66 Pulse Rate 65 Pulse Rate 63 Respiratory Rate 26 Respiratory Rate 26 Respiratory Rate 31 Respiratory Rate 29 Respiratory Rate 29 Respiratory Rate 40 Respiratory Rate 22 Respiratory Rate 24 Respiratory Rate 24 Respiratory Rate 29 Blood Pressure 117/66 Blood Pressure 143/65 Blood Pressure 141/67 Blood Pressure 125/67 Blood Pressure 153/78 Blood Pressure 166/78 Blood Pressure 156/77 Blood Pressure 134/68 O2 Sat by Pulse Oximetry 87 O2 Sat by Pulse Oximetry 87 O2 Sat by Pulse Oximetry 90 O2 Sat by Pulse Oximetry 89 O2 Sat by Pulse Oximetry 88 O2 Sat by Pulse Oximetry 88 O2 Sat by Pulse Oximetry 87 O2 Sat by Pulse Oximetry 87 O2 Sat by Pulse Oximetry 89 O2 Sat by Pulse Oximetry 88 O2 Sat by Pulse Oximetry 88 O2 Sat by Pulse Oximetry 85 Intake and Output: Intake & Output 10/27/23 10/28/23 10/29/23 10/30/23 11:59 11:59 11:59 11:59 Intake Total 820 / 820 1370 / 1370 900 / 900 740 / 740 Output Total 750 / 750 400 / 400 1400 / 1400 1875 / 1875 Balance 70 / 70 970 / 970 -500 / -500 -1135 / -1135 - Physical Exam Oriented: Normal Eyes: Normal Ear: Normal Nose: Normal Throat: Normal Respiratory: Generalized, Diminished Cardiovascular: Normal : Normal Auscultation: Bowel Sounds: Normal Palpation: Normal Tenderness: Normal Skin: Normal Musculoskeletal: Normal Psychiatric: Normal Mood Description: Calm Affect: Normal Speech Pattern: Clear - Laboratory and Diagnostics Result Diagrams: 10/30/23 04:15 10/30/23 04:15 Labs: 10/22/23 18:34 Blood Blood Culture - Final 10/22/23 18:30 Blood Blood Culture - Final Laboratory WBC 16.2 X10^3/uL (3.6-10.0) H 10/30/23 04:15 RBC 5.86 X10^6/uL (4.7-6.0) 10/30/23 04:15 Hgb 17.8 g/dL (13.5-18.0) 10/30/23 04:15 Hct 55.8 % (42.0-54.0) H 10/30/23 04:15 MCV 95.2 fL (80.0-100.0) 10/30/23 04:15 MCH 30.3 pg (27.0-34.0) 10/30/23 04:15 MCHC 31.8 g/dL (33.0-35.0) L 10/30/23 04:15 RDW 16.1 % (11.6-16.5) 10/30/23 04:15 Plt Count 102 X10^3/uL (150.0-450.0) L 10/30/23 04:15 Plt Count Comment Decreased (ADEQUATE) 10/30/23 04:15 MPV 8.6 fL (7.4-11.0) 10/30/23 04:15 Neut % (Auto) 93.6 % (42.0-75.0) H 10/30/23 04:15 Lymph % (Auto) 1.5 % (21.0-51.0) L 10/30/23 04:15 [place] % (Auto) 4.6 % (0.0-13.0) 10/30/23 04:15 Eos % (Auto) 0.1 % (0.9-2.9) L 10/30/23 04:15 Baso % (Auto) 0.2 % (0.2-1.0) 10/30/23 04:15 Neut # (Auto) 15.2 x10^3/uL (2.2-4.8) H 10/30/23 04:15 Lymph # (Auto) 0.2 X10^3/uL (1.3-2.9) L 10/30/23 04:15 [place] # (Auto) 0.7 x10^3/uL (0.3-0.8) 10/30/23 04:15 Eos # (Auto) 0.0 x10^3/uL (0.0-0.2) 10/30/23 04:15 Baso # (Auto) 0.0 X10^3/uL (0.0-0.1) 10/30/23 04:15 Absolute Nucleated RBC 0.1 /100WBC 10/30/23 04:15 Total Counted 100 10/30/23 04:15 Neutrophils % (Manual) 93 % (39-76) H 10/30/23 04:15 Band Neutrophils % 1 % (0-10) 10/25/23 04:42 Lymphocytes % (Manual) 3 % (13-43) L 10/30/23 04:15 Monocytes % (Manual) 4 % (4-9) 10/30/23 04:15 Smudge Cells Slight A 10/30/23 04:15 Giant Platelets Few 10/22/23 18:30 Plt Morphology Comment Normal (NORMAL) 10/30/23 04:15 RBC Morphology Normal (NORMAL) 10/30/23 04:15 Anisocytosis Slight A 10/22/23 18:30 Tear Drop Cells Present 10/26/23 04:17 PT 16.4 SECONDS (11.8-14.3) 10/22/23 18:50 INR Target Range - 10/22/23 18:50 INR 1.35 (0.8-1.3) H 10/22/23 18:50 APTT 35.6 SECONDS (22.9-36.5) 10/22/23 18:50 PTT Comment - 10/22/23 18:50 D-Dimer 10.74 ug/ml (0.0-0.57) H 10/23/23 09:03 Sample Site Lr 10/30/23 09:28 ABG pH 7.460 (7.35-7.45) H 10/30/23 09:28 ABG pCO2 41.0 mmHg (35.0-45.0) 10/30/23 09:28 ABG pO2 46.0 mmHg (80.0-100.0) L* 10/30/23 09:28 ABG HCO3 29.2 mmol/L (22-26) H 10/30/23 09:28 ABG O2 Saturation 84.0 % (90-100) L* 10/30/23 09:28 ABG Base Excess 4.9 mmol/L (-2.0-2.0) H 10/30/23 09:28 Ganesh Test Pos 10/30/23 09:28 A-a Gradient 238.0 mmHg 10/30/23 09:28 FiO2 47.0 10/30/23 09:28 Blood Gas Comments Pt makeda well 10/30/23 09:28 Sodium 139 mmol/L (136-145) 10/30/23 04:15 Corrected Sodium 140 mmol/L (136-145) 10/30/23 04:15 Potassium 4.3 mmol/L (3.5-5.1) 10/30/23 04:15 Chloride 105 mmol/L (98-107) 10/30/23 04:15 Carbon Dioxide 29.0 mmol/L (21-32) 10/30/23 04:15 BUN 36 mg/dL (7-18) H 10/30/23 04:15 Creatinine 1.00 mg/dL (0.70-1.30) 10/30/23 04:15 Est GFR (MDRD) Af Amer > 60 (>60) 10/30/23 04:15 Est GFR (MDRD) Non-Af > 60 (>60) 10/30/23 04:15 Glucose 134 mg/dL (65-99) H 10/30/23 04:15 Lactic Acid 1.7 mmol/L (0.4-2.0) 10/23/23 08:15 Calcium 7.9 mg/dL (8.5-10.1) L 10/30/23 04:15 Corrected Calcium 9.2 mg/dL (8.5-10.1) 10/30/23 04:15 Magnesium 2.3 mg/dL (2.0-2.9) 10/23/23 04:11 Total Bilirubin 1.10 mg/dL (0.2-1.0) H 10/30/23 04:15 AST 27 Units/L (15-37) 10/30/23 04:15 ALT 32 Units/L (12-78) 10/30/23 04:15 Alkaline Phosphatase 77 Units/L (46-116) 10/30/23 04:15 Creatine Kinase 55 Units/L (39-308) 10/23/23 00:20 Troponin I High Sens 834.7 ng/L (4.0-60.0) H* 10/23/23 06:50 C-Reactive Protein 2.40 mg/L (0-3.0) 10/28/23 04:00 B-Natriuretic Peptide 243 pg/mL (0-79) H 10/30/23 04:15 Total Protein 5.6 g/dL (6.4-8.2) L 10/30/23 04:15 Albumin 2.4 g/dL (3.4-5.0) L 10/30/23 04:15 Globulin 3.2 g/dL (2.5-4.5) 10/30/23 04:15 Albumin/Globulin Ratio 0.8 Ratio (1.1-2.1) L 10/30/23 04:15 SARS-CoV-2 (PCR) Positive (NEGATIVE) A 10/22/23 20:47 Influenza Type A (PCR) Negative (NEGATIVE) 10/22/23 20:47 Influenza Type B (PCR) Negative (NEGATIVE) 10/22/23 20:47 RSV (PCR) Negative (NEGATIVE) 10/22/23 20:47 - Plan (1) Acute hypoxemic respiratory failure due to COVID-19 Status: Acute Plan: SUPPLEMENTAL OXYGEN, SOLU-MEDROL 40MG IV Q8H, PULMICORT NEBS BID, ROBITUSSIN DM 10 ML QID, TUSSIONEX 5ML Q12H PRN, LEVAQUIN 750MG IV DAILY, TESSALON PERLES 200MG DAILY. HIS HOME MEDS OF COLACE, LASIX, METOPROLOL, PROTONIX WERE RESUMED. (2) Bronchopneumonia Status: Acute (3) PRIMO (acute kidney injury) Status: Acute (4) Non-ST elevation [place] (NSTEMI) Status: Acute Plan: CARDIOLOGY CONSULT (5) HTN (hypertension) Status: Acute Qualifiers: Hypertension type: primary hypertension Qualified Code(s): I10 - Essential (primary) hypertension (6) COPD (chronic obstructive pulmonary disease) Status: Chronic Qualifiers: COPD type: unspecified COPD Qualified Code(s): J44.9 - Chronic obstructive pulmonary disease, unspecified (7) Hyperlipidemia Status: Chronic Qualifiers: Hyperlipidemia type: mixed hyperlipidemia Qualified Code(s): E78.2 - Mixed hyperlipidemia (8) Pulmonary fibrosis Status: Chronic
[2023-10-31 04:58] LABS: BASOPHILS % (AUTO) 0.2 % (0.2-1.0); HEMATOCRIT 55.3 % (42.0-54.0); HEMOGLOBIN 17.9 g/dL (13.5-18.0); LYMPHOCYTES # (AUTO) 0.3 X10^3/uL (1.3-2.9); LYMPHOCYTES % (AUTO) 1.9 % (21.0-51.0); MEAN CORPUSCULAR HEMOGLOBIN 30.6 pg (27.0-34.0); MEAN CORPUSCULAR HGB CONC 32.3 g/dL (33.0-35.0); MEAN CORPUSCULAR VOLUME 94.9 fL (80.0-100.0); MEAN PLATELET VOLUME 8.8 fL (7.4-11.0); MONOCYTES # (AUTO) 0.8 x10^3/uL (0.3-0.8); MONOCYTES % (AUTO) 4.6 % (0.0-13.0); NEUTROPHILS # (AUTO) 16.2 x10^3/uL (2.2-4.8); NEUTROPHILS % (AUTO) 93.3 % (42.0-75.0); PLATELET COUNT 109 X10^3/uL (150.0-450.0); RED BLOOD COUNT 5.83 X10^6/uL (4.7-6.0); RED CELL DISTRIBUTION WIDTH 15.9 % (11.6-16.5); WHITE BLOOD COUNT 17.4 X10^3/uL (3.6-10.0)
[2023-10-31 05:10] LABS: ALANINE AMINOTRANSFERASE 32 Units/L (12-78); ALBUMIN 2.4 g/dL (3.4-5.0); ALKALINE PHOSPHATASE 78 Units/L (46-116); ASPARTATE AMINO TRANSFERASE 30 Units/L (15-37); BLOOD UREA NITROGEN 37 mg/dL (7-18); CALCIUM 8.1 mg/dL (8.5-10.1); CARBON DIOXIDE 31.1 mmol/L (21-32); CHLORIDE 106 mmol/L (98-107); COR CA(FOR HYPOALB) 9.4 mg/dL (8.5-10.1); COR NA(FOR HYPERGLY) 142 mmol/L (136-145); CREATININE 0.99 mg/dL (0.70-1.30); GLUCOSE 132 mg/dL (65-99); POTASSIUM 4.3 mmol/L (3.5-5.1); SODIUM 141 mmol/L (136-145); TOTAL PROTEIN 5.7 g/dL (6.4-8.2); eGFR NON BLACK RACES > 60 (>60)
[2023-10-31 05:24] LABS: PLATELET MORPHOLOGY COMMENT NORMAL (NORMAL); SMUDGE CELLS SLIGHT
--- NOTE | 2023-10-31 07:13 | RAD ---
EXAM:CHEST, 1 VIEWHISTORY:SOB;COMPARISON:10/30/2023. br.br.br.br chestFINDINGS:Status post median sternotomy and CABG. The cardiac and mediastinal contours appear stable, with widening of the mediastinum. Similar-appearing bilateral airspace and interstitial opacities. Airspace opacity appears worst in the right upper lobe and left lower lung. No definite pleural effusion or pneumothorax.IMPRESSION:Similar appearance to prior. Recent CT showed a 3 cm right upper lobe mass suspicious for malignancy, mediastinal adenopathy, and pneumonia. Recommend oncologic workupTHIS IS AN ELECTRONICALLY VERIFIED FINAL REPORT10/31/2023 7:09 AM - Electronically signed by Adelfo Mckeon MD
[2023-10-31] MEDS: PULMICORT NEB TX 0.5 MG NEB SCH ×3 (08:24→20:45)
[2023-10-31] MEDS: LEVAQUIN PREMIX IV 750 MG 750 MG/150 ML BAG IV SCH (09:06)
[2023-10-31] MEDS: NORVASC TAB 5 MG PO SCH ×2 (09:07→21:26)
[2023-10-31] MEDS: COLACE CAP 100 MG PO SCH ×2 (09:07→21:26)
[2023-10-31] MEDS: PROTONIX TAB 40 MG PO SCH ×2 (09:07→21:27)
[2023-10-31] MEDS: ASPIRIN PO SCH (09:07)
[2023-10-31] MEDS: TESSALON PERLES PO SCH (09:07)
[2023-10-31] MEDS: LASIX PO PRN ×2 (09:08→21:27)
[2023-10-31] MEDS: LOPRESSOR TAB 50 MG PO SCH ×2 (09:08→21:26)
[2023-10-31] MEDS: DUONEB 0.5 MG/3 MG (3 mL) NEB SCH ×4 (10:05→20:45)
[2023-10-31] MEDS: DIFLUCAN PO SCH (10:47)
[2023-10-31] MEDS: SOLU-Medrol 40 MG VIAL IVP SCH ×3 (10:48→21:25)
[2023-10-31] MEDS: MAGIC MOUTHWASH (Orig. Formula) MT SCH ×4 (10:50→21:30)
--- NOTE | 2023-10-31 12:02 | PCM.PROG ---
Progress Note - Progress Note for Day of Date of Exam: 10/31/23 - Subjective Subjective: WAS ADMITTED ON 10/22/23 FOR TREATMENT OF ACUTE HYPOXEMIC RESPIRATORY FAILURE, COVID-19, BRONCHOPNEUMONIA, ACUTE KIDNEY INJURY, NON-STEMI. HE IS CURRENTLY INPATIENT STATUS. HIS HX INCLUDES: PULMONARY FIBROSIS, COPD, HYPERLIPIDEMIA, GERD. TODAY, HE IS ALERT AND ORIENTED, SITTING UP IN BED ON MORNING ROUNDS. HE REPORTS FEELING ABOUT THE SAME TODAY. HE DOESNT REPORT MUCH IMPROVEMENT SINCE YESTERDAY. HE CONTINUES WITH SHORTNESS OF BREATH AND WEAKNESS, BUT HE DENIES CHEST PAIN OR OTHER SYMPTOMS. HE IS UTILIZING OXYGEN VIA THE OXYMASK AT 4-5 LPM THIS MORNING. HIS OXYGEN SATURATIONS HAVE BEEN 88-94% THIS MORNING AND THROUGHOUT THE NIGHT. ON EXAMINATION, HEART IS REGULAR IN RATE AND RHYHTM. BILATERAL LUNGS ARE NOTED WITH DIMINISHED LUNG SOUNDS THROUGHOUT. ABDOMEN IS ROUND, SOFT, AND NON-TENDER WITH NORMAL BOWEL SOUNDS NOTED IN ALL QUADRANTS. GOOD RANGE OF MOTION NOTED TO UPPER AND LOWER EXTREMITIES WITH NO EDEMA NOTED. HIS VITALS THIS MORNING ARE: 97.3-79-25-90%-146/65. LABS WERE OBTAINED. WBC 17.4, RBC 5.83, HGB 17.9, HCT 55.3, PLT COUNT 109, SODIUM 141, POTASSIUM 4.3, CHLORIDE 106, BUN 37, CREATININE 0.99, GLUCOSE 132, CALCIUM 8.1, TOTAL BILI 1.30, AST 30, ALT 32, ALK PHOS 78, BNP 293, TOTAL PROTEIN 5.7, ALBUMIN 2.4. A CHEST CT WITH CONTRAST WAS OBTAINED YESTERDAY AND REVEALED: 3 cm x 2.7 cm x 3.7 cm right apical lung mass which should be considered rapidly progressive malignant pulmonary neoplasm until proven otherwise. Metastatic mediastinal adenopathy as described accounting for the widening of the upper mediastinum. Peripheral right upper lobe, left upper lobe and left lower lobe infiltrates suggestive of multifocal pneumonia which could be bacterial, viral, or atypical viral in origin. WE CONSULTED [facility] VIA [facility]LEMEDICINE. THEY DID NOT RECOMMEND ANY CHANGES, ONLY TO FOLLOW UP WITH HEMATOLOGY/ONCOLOGY AFTER DISCHARGE. HE IS CURRENTLY RECEIVING SOLU-MEDROL 40MG IV Q8H, PULMICORT NEBS BID, ROBITUSSIN DM 10 ML QID, TUSSIONEX 5ML Q12H PRN, LEVAQUIN 750MG IV DAILY, TESSALON PERLES 200MG DAILY, NORVASC 5MG DAILY. HIS HOME MEDS OF COLACE, LASIX, METOPROLOL, PROTONIX WERE RESUMED. HE HAS RECEIVED SOME THERAPEUTIC PHLEBOTOMY SINCE HE HAS BEEN HERE AND HAS ALSO BEEN FOLLOWED BY CARDIOLOGY. TODAY, WE WILL ADD DUONEBS TID AND INCREASE HIS PULMICORT NEBS TO 1MG BID. WE WILL ADD DIFLUCAN 100MG DAILY AND MAGIC MOUTHWASH QID. OTHERWISE, WE WILL CONTINUE WITH CURRENT PLAN OF CARE. WE DISCUSSED THE CT FINDINGS AND THE CONSULT WITH THE PATIENT. PATIENT DOES NOT WISH TO SEEK ANY TREATMENT FOR THE SUSPECTED NEOPLASM. PATIENT WISHES TO GO HOME ON HOSPICE WHEN HE IS STABLE. WE WILL ARRANGE FOR [facility] TO SEE PATIENT WHEN HE IS READY FOR DISCHARGE. OTHERWISE, WE WILL FOLLOW-UP WITH AM LABS AND CHEST XRAY AND CONTINUE TO MONITOR. TIME SPENT ON CLINICAL ASSESSMENT, REVIEWING LABS AND IMAGING, DECISION MAKING, AND DOCUMENTATION GREATER THAN 45 MINUTES. - Past Medical Family Social History Past Med/Fam/Surg Hx: No changes since H&P Allergies: Allergies No Known Drug Allergies Allergy (Unknown, Verified 02/11/21 09:36) Onset Date: 02/11/2021 - Review of Systems ROS: No change since H&P - Vital Signs and I&O's Vital Signs: Vital Signs Temperature 97.3 F Temperature 98.0 F Pulse Rate 77 Pulse Rate 76 Pulse Rate 67 Pulse Rate 79 Pulse Rate 70 Pulse Rate 73 Pulse Rate 71 Pulse Rate 72 Pulse Rate 71 Respiratory Rate 36 Respiratory Rate 37 Respiratory Rate 24 Respiratory Rate 25 Respiratory Rate 26 Respiratory Rate 31 Respiratory Rate 25 Respiratory Rate 18 Respiratory Rate 22 Blood Pressure 130/74 Blood Pressure 130/73 Blood Pressure 130/73 Blood Pressure 146/65 Blood Pressure 143/86 Blood Pressure 147/73 Blood Pressure 132/79 Blood Pressure 138/66 Blood Pressure 139/70 O2 Sat by Pulse Oximetry 89 O2 Sat by Pulse Oximetry 88 O2 Sat by Pulse Oximetry 90 O2 Sat by Pulse Oximetry 90 O2 Sat by Pulse Oximetry 93 O2 Sat by Pulse Oximetry 94 O2 Sat by Pulse Oximetry 90 O2 Sat by Pulse Oximetry 91 O2 Sat by Pulse Oximetry 91 Intake and Output: Intake & Output 10/28/23 10/29/23 10/30/23 10/31/23 11:59 11:59 11:59 11:59 Intake Total 1370 / 1370 900 / 900 740 / 740 1552 / 1552 Output Total 400 / 400 1400 / 1400 1875 / 1875 1950 / 1950 Balance 970 / 970 -500 / -500 -1135 / -1135 -398 / -398 - Physical Exam Oriented: Normal Eyes: Normal Ear: Normal Nose: Normal Throat: Normal Respiratory: Generalized, Diminished Cardiovascular: Normal : Normal Auscultation: Bowel Sounds: Normal Palpation: Normal Tenderness: Normal Skin: Normal Musculoskeletal: Normal Psychiatric: Normal Mood Description: Calm Affect: Normal Speech Pattern: Clear - Laboratory and Diagnostics Result Diagrams: 10/31/23 04:20 10/31/23 04:20 Labs: 10/22/23 18:34 Blood Blood Culture - Final 10/22/23 18:30 Blood Blood Culture - Final Laboratory WBC 17.4 X10^3/uL (3.6-10.0) H 10/31/23 04:20 RBC 5.83 X10^6/uL (4.7-6.0) 10/31/23 04:20 Hgb 17.9 g/dL (13.5-18.0) 10/31/23 04:20 Hct 55.3 % (42.0-54.0) H 10/31/23 04:20 MCV 94.9 fL (80.0-100.0) 10/31/23 04:20 MCH 30.6 pg (27.0-34.0) 10/31/23 04:20 MCHC 32.3 g/dL (33.0-35.0) L 10/31/23 04:20 RDW 15.9 % (11.6-16.5) 10/31/23 04:20 Plt Count 109 X10^3/uL (150.0-450.0) L 10/31/23 04:20 Plt Count Comment Decreased (ADEQUATE) 10/31/23 04:20 MPV 8.8 fL (7.4-11.0) 10/31/23 04:20 Neut % (Auto) 93.3 % (42.0-75.0) H 10/31/23 04:20 Lymph % (Auto) 1.9 % (21.0-51.0) L 10/31/23 04:20 [place] % (Auto) 4.6 % (0.0-13.0) 10/31/23 04:20 Eos % (Auto) 0.0 % (0.9-2.9) L 10/31/23 04:20 Baso % (Auto) 0.2 % (0.2-1.0) 10/31/23 04:20 Neut # (Auto) 16.2 x10^3/uL (2.2-4.8) H 10/31/23 04:20 Lymph # (Auto) 0.3 X10^3/uL (1.3-2.9) L 10/31/23 04:20 [place] # (Auto) 0.8 x10^3/uL (0.3-0.8) 10/31/23 04:20 Eos # (Auto) 0.0 x10^3/uL (0.0-0.2) 10/31/23 04:20 Baso # (Auto) 0.0 X10^3/uL (0.0-0.1) 10/31/23 04:20 Absolute Nucleated RBC 0.1 /100WBC 10/31/23 04:20 Total Counted 100 10/31/23 04:20 Neutrophils % (Manual) 92 % (39-76) H 10/31/23 04:20 Band Neutrophils % 1 % (0-10) 10/25/23 04:42 Lymphocytes % (Manual) 3 % (13-43) L 10/31/23 04:20 Monocytes % (Manual) 5 % (4-9) 10/31/23 04:20 Smudge Cells Slight A 10/31/23 04:20 Giant Platelets Few 10/22/23 18:30 Plt Morphology Comment Normal (NORMAL) 10/31/23 04:20 RBC Morphology Normal (NORMAL) 10/31/23 04:20 Anisocytosis Slight A 10/22/23 18:30 Tear Drop Cells Present 10/26/23 04:17 PT 16.4 SECONDS (11.8-14.3) 10/22/23 18:50 INR Target Range - 10/22/23 18:50 INR 1.35 (0.8-1.3) H 10/22/23 18:50 APTT 35.6 SECONDS (22.9-36.5) 10/22/23 18:50 PTT Comment - 10/22/23 18:50 D-Dimer 10.74 ug/ml (0.0-0.57) H 10/23/23 09:03 Sample Site Lr 10/30/23 09:28 ABG pH 7.460 (7.35-7.45) H 10/30/23 09:28 ABG pCO2 41.0 mmHg (35.0-45.0) 10/30/23 09:28 ABG pO2 46.0 mmHg (80.0-100.0) L* 10/30/23 09:28 ABG HCO3 29.2 mmol/L (22-26) H 10/30/23 09:28 ABG O2 Saturation 84.0 % (90-100) L* 10/30/23 09:28 ABG Base Excess 4.9 mmol/L (-2.0-2.0) H 10/30/23 09:28 Ganesh Test Pos 10/30/23 09:28 A-a Gradient 238.0 mmHg 10/30/23 09:28 FiO2 47.0 10/30/23 09:28 Blood Gas Comments Pt makeda well 10/30/23 09:28 Sodium 141 mmol/L (136-145) 10/31/23 04:20 Corrected Sodium 142 mmol/L (136-145) 10/31/23 04:20 Potassium 4.3 mmol/L (3.5-5.1) 10/31/23 04:20 Chloride 106 mmol/L (98-107) 10/31/23 04:20 Carbon Dioxide 31.1 mmol/L (21-32) 10/31/23 04:20 BUN 37 mg/dL (7-18) H 10/31/23 04:20 Creatinine 0.99 mg/dL (0.70-1.30) 10/31/23 04:20 Est GFR (MDRD) Af Amer > 60 (>60) 10/31/23 04:20 Est GFR (MDRD) Non-Af > 60 (>60) 10/31/23 04:20 Glucose 132 mg/dL (65-99) H 10/31/23 04:20 Lactic Acid 1.7 mmol/L (0.4-2.0) 10/23/23 08:15 Calcium 8.1 mg/dL (8.5-10.1) L 10/31/23 04:20 Corrected Calcium 9.4 mg/dL (8.5-10.1) 10/31/23 04:20 Magnesium 2.3 mg/dL (2.0-2.9) 10/23/23 04:11 Total Bilirubin 1.30 mg/dL (0.2-1.0) H 10/31/23 04:20 AST 30 Units/L (15-37) 10/31/23 04:20 ALT 32 Units/L (12-78) 10/31/23 04:20 Alkaline Phosphatase 78 Units/L (46-116) 10/31/23 04:20 Creatine Kinase 55 Units/L (39-308) 10/23/23 00:20 Troponin I High Sens 834.7 ng/L (4.0-60.0) H* 10/23/23 06:50 C-Reactive Protein 2.40 mg/L (0-3.0) 10/28/23 04:00 B-Natriuretic Peptide 293 pg/mL (0-79) H 10/31/23 04:20 Total Protein 5.7 g/dL (6.4-8.2) L 10/31/23 04:20 Albumin 2.4 g/dL (3.4-5.0) L 10/31/23 04:20 Globulin 3.3 g/dL (2.5-4.5) 10/31/23 04:20 Albumin/Globulin Ratio 0.7 Ratio (1.1-2.1) L 10/31/23 04:20 SARS-CoV-2 (PCR) Positive (NEGATIVE) A 10/22/23 20:47 Influenza Type A (PCR) Negative (NEGATIVE) 10/22/23 20:47 Influenza Type B (PCR) Negative (NEGATIVE) 10/22/23 20:47 RSV (PCR) Negative (NEGATIVE) 10/22/23 20:47 Resp Viral Panel (PCR) See scanned report 10/27/23 14:16 - Plan (1) Acute hypoxemic respiratory failure due to COVID-19 Status: Acute Plan: SUPPLEMENTAL OXYGEN, SOLU-MEDROL 40MG IV Q8H, PULMICORT NEBS BID, DUONEBS TID, DIFLUCAN 100MG DAILY, MAGIC MOUTHWASH QID, ROBITUSSIN DM 10 ML QID, TUSSIONEX 5ML Q12H PRN, LEVAQUIN 750MG IV DAILY, TESSALON PERLES 200MG DAILY. HIS HOME MEDS OF COLACE, LASIX, METOPROLOL, PROTONIX WERE RESUMED. 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 Status: Acute Plan: ARRANGE FOR HOSPICE WHEN PATIENT IS STABLE FOR DISCHARGE (4) PRIMO (acute kidney injury) Status: Acute (5) Non-ST elevation [place] (NSTEMI) Status: Acute Plan: CARDIOLOGY CONSULT (6) HTN (hypertension) Status: Acute Qualifiers: Hypertension type: primary hypertension Qualified Code(s): I10 - Essential (primary) hypertension (7) COPD (chronic obstructive pulmonary disease) Status: Chronic Qualifiers: COPD type: unspecified COPD Qualified Code(s): J44.9 - Chronic obstructive pulmonary disease, unspecified (8) Hyperlipidemia Status: Chronic Qualifiers: Hyperlipidemia type: mixed hyperlipidemia Qualified Code(s): E78.2 - Mixed hyperlipidemia (9) Pulmonary fibrosis Status: Chronic
[2023-11-01 05:21] LABS: BASOPHILS % (AUTO) 0.2 % (0.2-1.0); HEMATOCRIT 55.5 % (42.0-54.0); HEMOGLOBIN 17.8 g/dL (13.5-18.0); LYMPHOCYTES # (AUTO) 0.3 X10^3/uL (1.3-2.9); LYMPHOCYTES % (AUTO) 1.5 % (21.0-51.0); MEAN CORPUSCULAR HEMOGLOBIN 30.4 pg (27.0-34.0); MEAN PLATELET VOLUME 8.9 fL (7.4-11.0); MONOCYTES # (AUTO) 0.8 x10^3/uL (0.3-0.8); MONOCYTES % (AUTO) 4.4 % (0.0-13.0); NEUTROPHILS # (AUTO) 16.5 x10^3/uL (2.2-4.8); NEUTROPHILS % (AUTO) 93.9 % (42.0-75.0); PLATELET COUNT 102 X10^3/uL (150.0-450.0); RED BLOOD COUNT 5.84 X10^6/uL (4.7-6.0); RED CELL DISTRIBUTION WIDTH 16.1 % (11.6-16.5); WHITE BLOOD COUNT 17.6 X10^3/uL (3.6-10.0)
[2023-11-01 05:42] LABS: ALANINE AMINOTRANSFERASE 48 Units/L (12-78); ALBUMIN 2.3 g/dL (3.4-5.0); ALKALINE PHOSPHATASE 81 Units/L (46-116); ASPARTATE AMINO TRANSFERASE 40 Units/L (15-37); BLOOD UREA NITROGEN 38 mg/dL (7-18); CALCIUM 8.1 mg/dL (8.5-10.1); CARBON DIOXIDE 28.1 mmol/L (21-32); CHLORIDE 103 mmol/L (98-107); COR CA(FOR HYPOALB) 9.5 mg/dL (8.5-10.1); COR NA(FOR HYPERGLY) 139 mmol/L (136-145); CREATININE 1.07 mg/dL (0.70-1.30); GLUCOSE 156 mg/dL (65-99); POTASSIUM 4.3 mmol/L (3.5-5.1); SODIUM 138 mmol/L (136-145); TOTAL PROTEIN 5.6 g/dL (6.4-8.2); eGFR NON BLACK RACES > 60 (>60)
[2023-11-01] MEDS: SOLU-Medrol 40 MG VIAL IVP SCH ×3 (05:42→21:08)
[2023-11-01 05:44] LABS: ABG BASE EXCESS 8.8 mmol/L (-2.0-2.0)
[2023-11-01 05:45] LABS: ABG HCO3 32.7 mmol/L (22-26)
[2023-11-01 05:46] LABS: ABG ALLEN TEST POS
[2023-11-01 05:51] LABS: PLATELET MORPHOLOGY COMMENT NORMAL (NORMAL)
[2023-11-01] MEDS: DUONEB 0.5 MG/3 MG (3 mL) NEB SCH ×3 (06:00→20:12)
--- NOTE | 2023-11-01 08:55 | RAD ---
EXAM:CHEST, 1 VIEWHISTORY:SOB; COPD, HTN, CADCOMPARISON:10/31/2023.TECHNIQUE:AP view of the chestFINDINGS:Status post median sternotomy and CABG. Enlarged superior mediastinum with prominent right paratracheal stripe. Cardiac silhouette is stable. Known right upper lobe mass. Similar-appearing left mid to lower lung airspace and interstitial opacities. No definite pleural effusion or pneumothorax.IMPRESSION:No significant change compared to prior radiograph.THIS IS AN ELECTRONICALLY VERIFIED FINAL REPORT11/01/2023 8:37 AM - Electronically signed by Adelfo Mckeon MD
[2023-11-01] MEDS: LEVAQUIN PREMIX IV 750 MG 750 MG/150 ML BAG IV SCH (09:15)
[2023-11-01] MEDS: ASPIRIN PO SCH (09:19)
[2023-11-01] MEDS: PROTONIX TAB 40 MG PO SCH ×2 (09:19→21:07)
[2023-11-01] MEDS: TESSALON PERLES PO SCH (09:19)
[2023-11-01] MEDS: LOPRESSOR TAB 50 MG PO SCH ×2 (09:20→21:07)
[2023-11-01] MEDS: DIFLUCAN PO SCH (09:20)
[2023-11-01] MEDS: COLACE CAP 100 MG PO SCH ×2 (09:20→21:06)
[2023-11-01] MEDS: NORVASC TAB 5 MG PO SCH ×2 (09:20→21:07)
[2023-11-01] MEDS: MAGIC MOUTHWASH (Orig. Formula) MT SCH ×4 (09:21→21:22)
[2023-11-01] MEDS ORDERED: NS 50 ML IV 50 ML IV ONE ×2 (09:27→10:45)
[2023-11-01] MEDS: PULMICORT NEB TX 0.5 MG NEB SCH ×2 (13:50→20:11)
[2023-11-02] MEDS: SOLU-Medrol 40 MG VIAL IVP SCH (05:09)
[2023-11-02] MEDS: DUONEB 0.5 MG/3 MG (3 mL) NEB SCH (05:15)
[2023-11-02 05:43] LABS: BASOPHILS % (AUTO) 0.2 % (0.2-1.0); HEMATOCRIT 52.8 % (42.0-54.0); HEMOGLOBIN 16.9 g/dL (13.5-18.0); LYMPHOCYTES # (AUTO) 0.2 X10^3/uL (1.3-2.9); LYMPHOCYTES % (AUTO) 1.4 % (21.0-51.0); MEAN CORPUSCULAR HEMOGLOBIN 30.4 pg (27.0-34.0); MEAN PLATELET VOLUME 8.9 fL (7.4-11.0); MONOCYTES # (AUTO) 0.7 x10^3/uL (0.3-0.8); NEUTROPHILS # (AUTO) 15.9 x10^3/uL (2.2-4.8); NEUTROPHILS % (AUTO) 94.4 % (42.0-75.0); PLATELET COUNT 92 X10^3/uL (150.0-450.0); RED BLOOD COUNT 5.56 X10^6/uL (4.7-6.0); WHITE BLOOD COUNT 16.8 X10^3/uL (3.6-10.0)
[2023-11-02 05:56] LABS: PLATELET MORPHOLOGY COMMENT NORMAL (NORMAL); SMUDGE CELLS SLIGHT; TARGET CELLS SLIGHT
[2023-11-02 05:59] LABS: ALANINE AMINOTRANSFERASE 72 Units/L (12-78); ALBUMIN 2.2 g/dL (3.4-5.0); ALKALINE PHOSPHATASE 85 Units/L (46-116); ASPARTATE AMINO TRANSFERASE 43 Units/L (15-37); BLOOD UREA NITROGEN 31 mg/dL (7-18); CALCIUM 7.9 mg/dL (8.5-10.1); CARBON DIOXIDE 31.3 mmol/L (21-32); CHLORIDE 103 mmol/L (98-107); COR CA(FOR HYPOALB) 9.3 mg/dL (8.5-10.1); COR NA(FOR HYPERGLY) 139 mmol/L (136-145); CREATININE 0.96 mg/dL (0.70-1.30); GLUCOSE 134 mg/dL (65-99); POTASSIUM 4.3 mmol/L (3.5-5.1); SODIUM 138 mmol/L (136-145); TOTAL PROTEIN 5.2 g/dL (6.4-8.2); eGFR NON BLACK RACES > 60 (>60)
[2023-11-02 08:03] VITALS: TEMP 97.3
--- NOTE | 2023-11-02 08:45 | RAD ---
EXAM:CHEST, 1 VIEWHISTORY:SOB; COPD, HTN, CADCOMPARISON:11/01/2023.TECHNIQUE:AP view of the chestFINDINGS:Known right upper lobe mass. Known mediastinal adenopathy. Cardiac silhouette stable. Mildly worse bibasilar airspace and interstitial opacities consistent with pneumonia. Left costophrenic sulcus not completely imaged. No discernible pleural effusion or pneumothorax.IMPRESSION:Mildly worse bibasilar opacities consistent with pneumonia. Known right upper lobe mass and mediastinal adenopathy.THIS IS AN ELECTRONICALLY VERIFIED FINAL REPORT11/02/2023 8:41 AM - Electronically signed by Adelfo Mckeon MD
[2023-11-02] MEDS: PULMICORT NEB TX 0.5 MG NEB SCH (08:48)
[2023-11-02] MEDS: LOPRESSOR TAB 50 MG PO SCH (08:49)
[2023-11-02] MEDS: NORVASC TAB 5 MG PO SCH (08:49)
[2023-11-02] MEDS: COLACE CAP 100 MG PO SCH (08:49)
[2023-11-02] MEDS: ASPIRIN PO SCH (08:49)
[2023-11-02] MEDS: PROTONIX TAB 40 MG PO SCH (08:49)
[2023-11-02] MEDS: DIFLUCAN PO SCH (08:49)
[2023-11-02] MEDS: LEVAQUIN PREMIX IV 750 MG 750 MG/150 ML BAG IV SCH (08:50)
[2023-11-02] MEDS: MAGIC MOUTHWASH (Orig. Formula) MT SCH (08:50)
[2023-11-02] MEDS: TESSALON PERLES PO SCH (08:50)
[2023-11-02 10:24] VITALS: O2SAT 92
[2023-11-02 11:11] VITALS: BP 124/65; PULSE 67; RESP 41
== END 2023-11-02 11:45 | disposition hospice, home (50) | DRG 177 ==
LOC: ER 18:07 → ICU 23:39
PROVIDERS: ADMIT Internal Medicine; ATTEND Internal Medicine
DX: R77.8 Other specified abnormalities of plasma proteins; N17.8 Other acute kidney failure; J44.9 Chronic obstructive pulmonary disease, unspecified; I21.4 Non-ST elevation (NSTEMI) myocardial infarction; J84.10 Pulmonary fibrosis, unspecified; R79.82 Elevated C-reactive protein (CRP); Z99.81 Dependence on supplemental oxygen; C34.91 Malignant neoplasm of unspecified part of right bronchus or lung; J18.0 Bronchopneumonia, unspecified organism; E78.2 Mixed hyperlipidemia; I10 Essential (primary) hypertension; B96.29 Other Escherichia coli [E. coli] as the cause of diseases classified elsewhere; U07.1 COVID-19; Z66 Do not resuscitate; D75.1 Secondary polycythemia; J96.01 Acute respiratory failure with hypoxia; C78.1 Secondary malignant neoplasm of mediastinum; R06.02 Shortness of breath